=== PATIENT | female | born 1980 | race Caucasian/White ===

== ENCOUNTER 2019-10-02 12:54 | Emergency (ER) | payer OTHER, SELFPAY ==
--- NOTE | ~2019-10-02 | CT_ITS ---
EXAMINATION: CT abdomen pelvis w con DATE: 10/02/2019 14:13 INDICATION: Abdominal pain. TECHNIQUE: Computed tomography (CT) of the abdomen and pelvis was performed with 100 mL Omnipaque 350 intravenous contrast. Automated exposure control and iterative reconstruction technique were employe d. The dose-length product was 219.36 mGy-cm. COMPARISON: CT abdomen and pelvis 01/06/2007 FINDINGS: The visualized portions of the lung bases demonstrate minimal atelectasis. No pleural effus ion. The heart size is normal. No pericardial effusion. There is a 6 mm cyst in the liver. The gallbl adder, spleen, pancreas, adrenal glands, and kidneys are normal. There is a 4.0 cm cyst in the right adnexa. The appendix is not visualized. There are no dilated loops of bowel. There are no pathologica lly enlarged lymph nodes. There is no free intraperitoneal fluid. There is lumbar dextrocurvature. IMPRESSION: 1. 4.0 cm cyst in the right adnexa, likely a follicular cyst. Reviewed, dictated and finalized at location A. NTOLOGY AIDE
[2019-10-02 13:10] VITALS: BP 152/88; PULSE 92; RESP 16; TEMP 36.7; O2SAT 100
--- NOTE | 2019-10-02 13:12 | ED.HA ---
HPI - Headache General Chief Complaint: Headache Stated Complaint: muscle spasms, foggy headed , abd pain Time Seen by Provider: 10/02/19 13:02 Source: patient and RN notes reviewed Mode of arrival: ambulatory Limitations: no limitations History of Present Illness HPI Narrative: Pt is a 39 y/o female with a Hx of Chiari malformation, who presents to the ED with c/o severe migraine headache starting earlier today. She notes that she has had intermittent RUQ pain for the past several weeks. Pt states that she then developed diffuse muscle spasms 3 days ago. She also notes having bladder spasms, stating that she has had several episodes of urinary incontinence over the past few days. Pt notes that she developed an extreme migraine headache earlier today. She rates her pain at 10/10. 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 Pt notes that she took Diazepam 2.5 mg for her symptoms earlier today. She currently denies any nausea, vomiting, diarrhea, cough, or rhinorrhea. MD elicited complaint: migraine Pertinent past history: migraines and other (Chiari malformation) Onset (ago): hour(s) (several) Pain scale (0-10): 10 Quality & Timing: similar to previous headaches Associated symptoms: other (RUQ pain; diffuse muscle spasms; urinary incontinence; bladder spasms) Treatments prior to arrival: other (Diazepam) Related Data Allergies Allergy/AdvReac Type Severity Reaction Status Date / Time No Known Allergies Allergy Mild Verified 10/02/19 13:32 Review of Systems Review of Systems: All systems reviewed & are unremarkable except as noted in HPI and below ENT: Denies nasal discharge Respiratory: Respiratory: Denies cough Gastrointestinal: Gastrointestinal: Reports abdominal pain (RUQ pain), Denies diarrhea, Denies nausea and Denies vomiting Genitourinary: Genitourinary: Reports urinary incontinence and Reports other (bladder spasms) Musculoskeletal: Musculoskeletal: Reports other (diffuse muscle spasms) Neurologic: Reports headache(s) PMFSH Past Medical History Medical History Chiari malformation Migraines Vertigo Surgical History Surgical History No significant past surgical history Family History Family History (Updated 09/15/18 @ 11:17 by DOCTOR UNKNOWN) Mother Patient's mother is in good health Father Patient's father is in good health Social History Social History Smoking status: Never smoker Alcohol intake: current Gender identity (if verbalized by the patient): Female Comments PCP is Dr. Brand. Exam Narrative: Exam Narrative: General appearance: Well-developed, well-nourished Skin: Normal color Head: Normocephalic, nontraumatic Eyes: Clear conjunctiva ENT: Oropharynx normal, ears normal, nose normal Neck: Supple, nontender Chest and respiratory: Airway patent, no respiratory distress, no accessory muscle use Heart: Regular rate/rhythm Abdomen: Soft, moderate tenderness right lower quadrant, positive guarding, no rebound r, no organomegaly, quiet bowel sounds Vascular: Normal peripheral pulses, normal capillary refill. Musculoskeletal: Normal range of motion, nontender back Neurologic: Alert and oriented ?3, UPHOLSTERY SEWER is normal as tested, no gross motor deficit Course Course Emergency Course: Improving Vital Signs Vital signs: Vital Signs Temperature 36.7 C 10/02/19 13:10 Pulse Rate 92 10/02/19 13:10 Respiratory Rate 16 10/02/19 13:10 Blood Pressure 152/88 H 10/02/19 13:10 Pulse Oximetry 100
[2019-10-02 13:27] VITALS: BP 109/88; PULSE 72; RESP 18; O2SAT 100
[2019-10-02] MEDS: ONDANSETRON INJ 4 MG/2 ML VIAL IV PUSH (13:32)
[2019-10-02] MEDS: MORPHINE SULFATE 4 MG/ML INJ IV PUSH (13:33)
[2019-10-02 13:36] LABS: Basophils Absolute Auto 0.1 K/mm3 (0.0-0.1); Basophils Percent Auto 1.2 % (0.2-1.2); Eosinophils Absolute Auto 0.1 K/mm3 (0-0.3); Hematocrit 47.2 % (37.0-47.0); Hemoglobin 14.7 g/dL (12.0-15.0); Immature Granulocyte Absolute 0.03 K/mm3 (0.00-0.031); Immature Granulocyte Percent A 0.5 % (0-0.5); Lymphocytes Absolute Auto 1.27 K/mm3 (0.9-3.2); Lymphocytes Percent Auto 20.9 % (18.3-44.2); Mean Corpuscular HGB Conc 31.1 g/dl (32-36); Mean Corpuscular Hemoglobin 29.4 pg (26-34); Mean Corpuscular Volume 94.4 fl (80-100); Mean Platelet Volume 9.3 fl (7.4-10.4); Monocytes Absolute Auto 0.3 K/mm3 (0.1-0.6); Monocytes Percent Auto 4.6 % (2.6-8.5); Neutrophils Absolute Auto 4.4 K/mm3 (1.3-6.7); Neutrophils Percent Auto 71.8 % (45.5-73.1); Platelet Count Result 186 k/mm3 (150-375); Red Cell Distribution Width 12.9 % (11.5-14.5); White Blood Count 6.1 K/mm3 (4.5-10.0)
[2019-10-02 13:41] LABS: Add Urine Microscopic? YES; Appearance Urine Cloudy (Clear); Bacteria Urine 4+ /hpf; Bilirubin Urine Negative (Negative); Blood Urine Negative (Negative); Color Urine Yellow (Yellow); Glucose Urine UA Negative (Negative); Ketones Urine Negative (Negative); Leukocyte Esterase Ur 1+ LEU/UL (Negative); Mucus Urine Few /lpf; Nitrate Urine Negative (Negative); Protein Urine Negative (Negative); Specific Grav Ur 1.021 (1.001-1.035); Squamous Epithelial Cell Urine Many /hpf (Few); Urobilinogen Urine Negative mg/dL (<2.0)
[2019-10-02 13:52] LABS: Alanine Aminotransferase 13 U/L (4-35); Albumin Level 4.8 g/dL (3.5-5.1); Alkaline Phosphatase 48 U/L (38-126); Aspartate Amino Transferase 24 U/L (14-36); Bilirubin,Total 0.6 mg/dL (0.2-1.3); Blood Urea Nitrogen 11 mg/dL (7-17); Carbon Dioxide 21 mmol/L (22-30); Chloride 100 mmol/L (98-107); Estimated CRCL calculation 80 ml/min; Estimated Glomerular Filt Rate > 60; Glucose 113 mg/dL (65-105); Lipase 66 U/L (23-300); Potassium 3.6 mmol/L (3.4-5.0); Sodium 139 mmol/L (137-145)
[2019-10-02 14:34] VITALS: BP 101/71; PULSE 63; RESP 16; O2SAT 100
[2019-10-02 15:43] VITALS: BP 107/91; PULSE 78; RESP 16; O2SAT 99
== END 2019-10-02 15:43 | disposition home or self-care (01) ==
PROVIDERS: Emergency Provider Emergency Medicine; PCP Internal Medicine
DX: R51 Headache (principal); N83.201 Unspecified ovarian cyst, right side
CPT/HCPCS: 36415; 74177; 80053; 81001; 81025; 83690; 85025; 87086; 87088; 96374; 96375; 99284; J2270; J2405; Q9967

== ENCOUNTER 2020-03-07 11:07 | Outpatient (CLI) | payer OTHER, SELFPAY ==
[2020-03-07 11:55] LABS: Basophils Absolute Auto 0.1 K/mm3 (0.0-0.1); Basophils Percent Auto 0.9 % (0.2-1.2); Eosinophils Absolute Auto 0.1 K/mm3 (0-0.3); Eosinophils Percent Auto 0.9 % (0-4.4); Hematocrit 42.6 % (37.0-47.0); Hemoglobin 14.3 g/dL (12.0-15.0); Immature Granulocyte Absolute 0.01 K/mm3 (0.00-0.031); Immature Granulocyte Percent A 0.2 % (0-0.5); Lymphocytes Absolute Auto 1.69 K/mm3 (0.9-3.2); Lymphocytes Percent Auto 31.8 % (18.3-44.2); Mean Corpuscular HGB Conc 33.6 g/dl (32-36); Mean Corpuscular Hemoglobin 29.9 pg (26-34); Mean Corpuscular Volume 89.1 fl (80-100); Monocytes Absolute Auto 0.3 K/mm3 (0.1-0.6); Monocytes Percent Auto 6.2 % (2.6-8.5); Neutrophils Absolute Auto 3.2 K/mm3 (1.3-6.7); Platelet Count Result 238 k/mm3 (150-375); Red Blood Count 4.78 M/mm3 (4.2-5.4); Red Cell Distribution Width 12.3 % (11.5-14.5); White Blood Count 5.3 K/mm3 (4.5-10.0)
[2020-03-07 12:08] LABS: Alanine Aminotransferase 9 U/L (4-35); Albumin Level 4.9 g/dL (3.5-5.1); Alkaline Phosphatase 50 U/L (38-126); Aspartate Amino Transferase 17 U/L (14-36); Bilirubin,Total 0.5 mg/dL (0.2-1.3); Blood Urea Nitrogen 11 mg/dL (7-17); Calcium 9.2 mg/dL (8.4-10.2); Carbon Dioxide 25 mmol/L (22-30); Chloride 104 mmol/L (98-107); Cholesterol 188 mg/dL (0-200); Estimated Glomerular Filt Rate > 60; Glucose 91 mg/dL (65-105); HDL Direct 65 mg/dL; Potassium 3.8 mmol/L (3.4-5.0); Sodium 138 mmol/L (137-145); Triglycerides 73 mg/dL (<150)
[2020-03-07 12:18] LABS: LDL Cholesterol Direct 92 mg/dL
[2020-03-07 12:47] LABS: HIV 1/2 Ab P24 Ag Result Negative (Negative)
[2020-03-07 12:48] LABS: Vitamin D 25 Hydroxy 51.1 ng/mL
[2020-03-07 13:20] LABS: Hepatitis C Virus Antibody Negative (Negative)
[2020-03-10 05:12] LABS: Amphetamines negative; Barbiturates negative; Benzodiazepines POSITIVE; Cocaine Metabolites negative; Marijuana Metabolites negative; PCP negative
== END 2020-03-07 11:08 | disposition home or self-care (01) ==
PROVIDERS: PCP Internal Medicine; Visit Provider Clinical Nurse Specialist
DX: Z13.228 Encounter for screening for other metabolic disorders (principal); Z20.6 Contact with and (suspected) exposure to human immunodeficiency virus [HIV]; Z13.220 Encounter for screening for lipoid disorders; Z20.5 Contact with and (suspected) exposure to viral hepatitis; E55.9 Vitamin D deficiency, unspecified; R53.83 Other fatigue
CPT/HCPCS: 36415; 80053; 80061; 80307; 82306; 84443; 85025; 86703; 86803; G0432

== ENCOUNTER 2020-08-21 11:14 | Outpatient (CLI) | payer OTHER, SELFPAY ==
--- NOTE | ~2020-08-21 | XR_ITS ---
XR chest 2V DATE: 08/21/2020 11:40 INDICATION: Shortness of breath, cough. Covid-positive 2 weeks ago. TECHNIQUE: PA and lateral views COMPARISON: None FINDINGS: Normal heart size. No hilar or mediastinal enlargement. Bilateral hyperinflation. No pulmonary infiltrate or consolidation, pleural effusion or pulmonary vas cular congestion or pneumothorax. IMPRESSION: Bilateral hyperinflation; no active cardiopulmonary disease Reviewed, dictated and finalized at location A. CAL REIMBURSEMENT MANAGER
== END 2020-08-21 11:15 | disposition home or self-care (01) ==
PROVIDERS: PCP Internal Medicine; Visit Provider Nurse Practitioner
DX: R06.02 Shortness of breath (principal)
CPT/HCPCS: 71046

== ENCOUNTER 2020-08-22 13:06 | Emergency (ER) | payer OTHER, SELFPAY ==
[2020-08-22] VITALS (8 sets, daily range): BP systolic 104–128; BP diastolic 64–97; PULSE 92; RESP 17; TEMP 36.2; O2SAT 100
[2020-08-22 14:18] LABS: Basophils Absolute Auto 0.1 K/mm3 (0.0-0.1); Eosinophils Absolute Auto 0.1 K/mm3 (0-0.3); Hematocrit 44.3 % (37.0-47.0); Hemoglobin 15.1 g/dL (12.0-15.0); Immature Granulocyte Absolute 0.03 K/mm3 (0.00-0.031); Immature Granulocyte Percent A 0.4 % (0-0.5); Lymphocytes Absolute Auto 1.42 K/mm3 (0.9-3.2); Lymphocytes Percent Auto 21.2 % (18.3-44.2); Mean Corpuscular HGB Conc 34.1 g/dl (32-36); Mean Corpuscular Hemoglobin 30.1 pg (26-34); Mean Corpuscular Volume 88.4 fl (80-100); Mean Platelet Volume 9.5 fl (7.4-10.4); Monocytes Absolute Auto 0.3 K/mm3 (0.1-0.6); Monocytes Percent Auto 4.8 % (2.6-8.5); Neutrophils Absolute Auto 4.8 K/mm3 (1.3-6.7); Neutrophils Percent Auto 71.6 % (45.5-73.1); Platelet Count Result 275 k/mm3 (150-375); Red Blood Count 5.01 M/mm3 (4.2-5.4); Red Cell Distribution Width 12.6 % (11.5-14.5); White Blood Count 6.7 K/mm3 (4.5-10.0)
[2020-08-22 14:19] LABS: Add Urine Microscopic? YES; Appearance Urine Clear (Clear); Bacteria Urine Trace /hpf; Bilirubin Urine Negative (Negative); Blood Urine Negative (Negative); Color Urine Yellow (Yellow); Glucose Urine UA Negative (Negative); Ketones Urine Trace mg/dL (Negative); Leukocyte Esterase Ur Negative LEU/UL (Negative); Mucus Urine Rare /lpf; Nitrate Urine Negative (Negative); Protein Urine Negative (Negative); RBC Urine 0-2 /hpf (0-2); Specific Grav Ur 1.026 (1.001-1.035); Squamous Epithelial Cell Urine Many /hpf (Few); WBC Urine 0-3 /hpf
[2020-08-22 14:23] LABS: D Dimer 0.27 ug/mL (<0.48)
[2020-08-22 14:26] LABS: Alanine Aminotransferase 11 U/L (4-35); Albumin Level 4.9 g/dL (3.5-5.1); Alkaline Phosphatase 69 U/L (38-126); Anion Gap 8 mmol/L (8-16); Aspartate Amino Transferase 23 U/L (14-36); Bilirubin,Total 0.7 mg/dL (0.2-1.3); Blood Urea Nitrogen 13 mg/dL (7-17); CRP < 0.5 mg/dL (<1.0); Calcium 9.6 mg/dL (8.4-10.2); Carbon Dioxide 26 mmol/L (22-30); Chloride 104 mmol/L (98-107); Estimated CRCL calculation 73 ml/min; Estimated Glomerular Filt Rate > 60; Glucose 87 mg/dL (65-105); Potassium 4.3 mmol/L (3.4-5.0); Sodium 138 mmol/L (137-145)
[2020-08-22] MEDS: SODIUM CHLORIDE 0.9% IV 1,000 ML 999 ML IV CONT (14:36)
--- NOTE | 2020-08-22 15:29 | ED.GENADULT ---
HPI - General Adult General Chief complaint: Shortness of Breath/Dyspnea Stated complaint: sob Time Seen by Provider: 08/22/20 13:20 Source: patient Mode of arrival: ambulatory Limitations: no limitations History of Present Illness HPI narrative: Patient is a 40-year-old female who presents to emergency department for evaluation of loose stools that are described as yellow with some chest heaviness and pressure continued to have cough patient diagnosed early in the month with COVID-19 patient denies vomiting rectal bleeding melena patient on arrival does not appear uncomfortable or distressed patient had unremarkable EKG and chest x-ray performed this week after seeing her earlier this week Related Data Home Medications Medication Instructions Recorded Confirmed ondansetron HCl 8 mg tablet 8 mg PO Q8H PRN 12/07/19 prenat.vits,jacob,djj-[id number]-[id number] 1 tablet PO DAILY 12/07/19 drospirenone (contraceptive) 4 mg 4 mg PO DAILY 03/07/20 (28) tablet Allergies Allergy/AdvReac Type Severity Reaction Status Date / Time No Known Allergies Allergy Mild Verified 08/22/20 13:38 Review of Systems Review of Systems: All systems reviewed & are unremarkable except as noted in HPI and below PMFSH Past Medical History Medical History Chiari malformation Dermoid tumor Migraines Vertigo Surgical History Surgical History No significant past surgical history Family History Family History (Updated 09/15/18 @ 11:17 by DOCTOR UNKNOWN) Mother Patient's mother is in good health Father Patient's father is in good health Social History Social History Smoking status: Never smoker Alcohol intake: current Gender identity (if verbalized by the patient): Female Exam Narrative: Exam Narrative: GENERAL: Well-appearing, well-nourished, and in no acute distress. HEAD: Normocephalic, atraumatic. EYES: PERRLA and EOMI. ENT: Nares clear, no rhinorrhea or epistaxis. Mucous membranes moist. CHEST: Clear to auscultation. No respiratory distress. No wheezes rales or rhonchi HEART: Regular rate and rhythm. No murmur heard. EXTREMITIES: Normal range of motion. No edema. SKIN: Warm, dry, no rash. NEURO: No focal deficits. Alert and oriented x3. PSYCH: Normal mood and affect. Course Course Emergency Course: Patient in the room evaluated no high risk changes in the blood work or imaging EKG chest x-ray were reviewed and no high risk changes patient was hydrated in the emergency department felt to be safe for discharge home no pneumonia no hypoxemia normal vital signs ABCs intact Vital Signs Vital signs: Vital Signs Temperature 97.1 F L 08/22/20 13:14 Pulse Rate 92 08/22/20 13:14 Respiratory Rate 17 08/22/20 13:14 Blood Pressure 122/82 08/22/20 13:14 Pulse Oximetry 100 08/22/20 13:14 Temperature 97.1 F L 08/22/20 13:14 Pulse Rate 92 08/22/20 13:14 Respiratory Rate 17 08/22/20 13:14 Blood Pressure 108/97 H 08/22/20 14:32 Pulse Oximetry 100 08/22/20 14:32 Medical Decision Making [facility] Narrative Medical decision making narrative: Patient in the room in no distress aware of case findings treatment plan diagnosis. Patient will follow with primary care felt appropriate for outpatient reevaluation will be treated symptomatically given reasons to return Vital Signs Vital Signs: Vital Signs Temperature 97.1 F L 08/22/20 13:14 Pulse Rate 92 08/22/20 13:14 Respiratory Rate 17 08/22/20 13:14 Blood Pressure 122/82 08/22/20 13:14 Pulse Oximetry 100 08/22/20 13:14 Temperature 97.1 F L 08/22/20 13:14 Pulse Rate 92 08/22/20 13:14 Respiratory Rate 17 08/22/20 13:14 Blood Pressure 108/97 H 08/22/20 14:32 Pulse Oximetry 100 08/22/20 14:32 Lab Data Result diagrams: 08/22/20 13:57 07/25
== END 2020-08-22 16:14 | disposition home or self-care (01) ==
PROVIDERS: Emergency Medicine Emergency Medical Services; Emergency Provider Emergency Medicine; PCP Internal Medicine
DX: U07.1 COVID-19 (principal); R10.9 Unspecified abdominal pain
CPT/HCPCS: 36415; 80053; 81001; 85025; 85380; 86140; 96360; 99283; J7030

== ENCOUNTER 2020-08-29 14:48 | Outpatient (CLI) | payer OTHER, SELFPAY ==
--- NOTE | 2020-08-29 17:14 | WPDPFTINT ---
PFT Interpretation This is a pulmonary function test with spirometry, plethysmography and diffusing capacity. The test was performed and results interpreted in accordance with the 2019 and 2005 ATS/ERS Task Force guidelines respectively using the Sarthak/Meagan reference equations. Findings: Spirometry: The contour of the expiratory flow tracing is flattened in 3 of 4 efforts. The FVC is 3.09, 79% predicted. The FEV1 is 2.58 L, 85% predicted. The FEV1:FVC ratio is 84%. Plethysmography: The total lung capacity is 4.50 L, 79% predicted. The functional residual capacity is 2.85 L, 81% predicted. The residual volume is 1.41 L, 74% predicted. Diffusing capacity: The absolute diffusing capacity is 18.3, 95% predicted. The diffusing capacity corrected for alveolar volume is 4.79, 110% predicted. Impression: The spirometry is normal without evidence of an obstructive abnormality. There is flattening of the expiratory flow tracing in 3 of 4 efforts suggesting of a variable intrathoracic obstruction. This can be seen with intrathoracic tracheomalacia, bronchogenic cysts, malignant tracheal lesions and vocal cord abnormalities. Clinical correlation is recommended. The lung volumes are normal. The diffusing capacity is normal. There are no prior studies for comparison
== END 2020-08-29 14:49 | disposition home or self-care (01) ==
LOC: ANHPFT 14:49
PROVIDERS: PCP Internal Medicine; Visit Provider Nurse Practitioner
DX: R06.02 Shortness of breath (principal)
CPT/HCPCS: 94375; 94726; 94729

== ENCOUNTER 2020-09-03 14:22 | Outpatient (CLI) | payer OTHER, SELFPAY ==
--- NOTE | ~2020-09-03 | CT_ITS ---
EXAMINATION:CT chest w con DATE: 09/03/2020 14:51 INDICATION: Shortness of breath. TECHNIQUE: Computed tomography (CT) of the chest was performed with 75 mL Omnipaque 350 intravenous c ontrast. Automated exposure control and iterative reconstruction technique were employed. The dose-le ngth product (DLP) was 139.07 mGy-cm. COMPARISON: CT abdomen and pelvis 10/02/2019 FINDINGS: There is mild scarring at the lung apices. There are 4 mm and 2 mm nodules in left lower lo be, likely benign. No pleural effusion. The heart size is normal. No pericardial effusion. The bones are unremarkable. IMPRESSION: 1. Mild scarring at the lung apices. 2. Small lung nodules, likely benign. Reviewed, dictated and finalized at location A. IAL POLICE
--- NOTE | ~2020-09-03 | XR_ITS ---
EXAMINATION: XR chest 2V EXAM DATE: 09/03/2020 14:39 INDICATION: R09.89 - Other specified symptoms and signs involving the ci TECHNIQUE: Frontal and lateral projections of the chest obtained and reviewed. There is no prior ramiro dy for comparison. FINDINGS: The lungs are clear. There are no pleural effusions. The cardiomediastinal silhouette is within normal limits. There is no pneumothorax suspected. The bones and soft tissues are unremarkab le. IMPRESSION: No acute cardiopulmonary findings. Reviewed, dictated and finalized at location B. LE CUTTING SAW OPERATOR
== END 2020-09-03 14:23 | disposition home or self-care (01) ==
PROVIDERS: PCP Internal Medicine; Visit Provider Nurse Practitioner
DX: R06.02 Shortness of breath (principal); R91.8 Other nonspecific abnormal finding of lung field
CPT/HCPCS: 71046; 71260; Q9967

== ENCOUNTER 2020-09-05 10:12 | Outpatient (CLI) | payer OTHER, SELFPAY ==
--- NOTE | 2020-09-05 10:39 | ECHO_ITS ---
Patient Info Name: Savannah Darnell Age: 40 years : 1980 Gender: Female Ht: 67 in Wt: 102 lbs BSA: 1.46 m2 HR: 60 bpm BP: 105 / 81 mmHg Technical Quality: Good Exam Date: 09/05/2020 10:43 AM Exam Location: [facility] Patient Status: Outpatient Admit Date: 09/05/2020 Staff Ordering Physician: Marlena Lawson NP Radiology Scheduler: Owen Garzon, COBY, RT Attending Provider: Marlena Lawson NP Referring Physician: Lulu NEW; Exam Type: CA echo doppler color flow Study Info Indications R06.02 - Shortness of breath Complete two-dimensional, color flow and Doppler transthoracic echocardiogram is performed. Strain analysis performed. Summary 1. Complete two-dimensional, color flow and Doppler transthoracic echocardiogram is performed. 2. Left ventricular chamber dimension is normal. 3. Left ventricular systolic function is normal, estimated at 60-65%. 4. The left ventricular diastolic function is normal. 5. Global longitudinal strain is normal at -17.2%. 6. There is trace mitral valve regurgitation. 7. There is trace tricuspid valve regurgitation. 8. No pulmonary hypertension, estimated pulmonary arterial systolic pressure is 18 mmHg. 9. There is trivial pericardial effusion. Left Ventricle Global longitudinal strain is normal at -17.2%. Left ventricular chamber dimension is normal. Left ventricular systolic function is normal, estimated at 60-65%. The left ventricular diastolic function is normal. Right Ventricle Right ventricular chamber dimension is normal. Right ventricular systolic function is normal. Left Atria Left atrial chamber dimension is normal. Right Atria Right atrial chamber dimension is normal. Aortic Valve The aortic valve is trileaflet. There is no aortic valve stenosis. There is no aortic valve regurgitation. Pulmonic Valve There is no pulmonic regurgitation. Mitral Valve There is no mitral valve stenosis. There is trace mitral valve regurgitation. Tricuspid Valve There is trace tricuspid valve regurgitation. No pulmonary hypertension, estimated pulmonary arterial systolic pressure is 18 mmHg. Pericardium/Pleural There is trivial pericardial effusion. Inferior Vena Cava Normal inferior vena cava with >50% collapse upon inspiration consistent with normal right atrial pressure, 5 mmHg. Aorta The aortic root size at the sinus of Valsalva is normal. Left Ventricular Outflow Tract Name Value Normal LVOT 2D LVOT Diameter 1.9 cm LVOT Doppler LVOT Peak Gradient 2 mmHg LVOT Mean Gradient 1 mmHg LVOT VTI 13 cm LVOT VTI/AV VTI Ratio 0.7 LVOT Stroke Volume 39 ml LVOT CO 2.5 l/min LVOT CI 1.7 l/min/m2 Mitral Valve Name Value Normal MV Dopple
== END 2020-09-05 10:13 | disposition home or self-care (01) ==
PROVIDERS: PCP Internal Medicine; Visit Provider Nurse Practitioner
DX: R06.02 Shortness of breath (principal)
CPT/HCPCS: 93306

== ENCOUNTER 2020-10-16 02:05 | Emergency (ER) | payer OTHER, SELFPAY ==
--- NOTE | ~2020-10-16 | CT_ITS ---
EXAMINATION: CT soft tissue neck w con EXAM DATE: 10/16/2020 04:49 INDICATION: Mandibular mass on right side of jaw, painful swallowing. Tooth pulled on Wednesday. TECHNIQUE: Spiral CT of the neck was performed following intravenous injection of 75 mL Omnipaque 350 . Axial, coronal and sagittal images were reviewed. The dose-length product (DLP) for this examinat ion was 241.56 mGy-cm. The exposure was tailored according to patient size (auto mA exposure control ), and iterative reconstruction (ASIR) was used as additional dose reduction technique. There is no prior study for comparison. FINDINGS: There is asymmetry in the masseter muscles, with the right side likely edematous. Small yan unt of fluid suspected along the inner surface of masseter adjacent to the presumed right lower wisdo m tooth extraction site, without well-defined rim-enhancing wall. The thyroid gland is unremarkable. The submandibular and parotid glands are symmetric. There is no cervical lymphadenopathy. There are no masses identified. The superior mediastinum is unremarkable. The airway is unremarkable. Parapharyngeal and pre-glottic fat planes are preserved. The opacified vasculature is patent. The orbits are unremarkable. Visualized sinuses and mastoid air cells are well aerated. Lung apic es are clear. There is cervical spondylosis. IMPRESSION: 1. Right masseter edema, myositis. 2. Small amount of fluid contiguous to right lower wisdom tooth extraction site, site without organiz ed abscess at this time. 3. Consider antibiotic administration and if symptoms persist or progress a follow-up CT. Reviewed, dictated and finalized at location B. TATISTICS MANAGER IMPRESSION: 1. Right masseter edema, myositis. 2. Small amount of fluid contiguous to right lower wisdom tooth extraction site , site without organized abscess at this time. 3. Consider antibiotic administration and if symptoms persist or progress a fol low-up CT.
[2020-10-16 02:14] VITALS: BP 120/83; PULSE 100; RESP 20; TEMP 36.6; O2SAT 100
--- NOTE | 2020-10-16 02:54 | ED.DENTAL ---
HPI - Dental/Oral General Chief complaint: Dental/Oral Stated complaint: tooth abcess Time Seen by Provider: 10/16/20 02:23 Source: patient Mode of arrival: ambulatory Limitations: no limitations History of Present Illness HPI Narrative: A 40-year-old female comes into the emergency department with complaints of right jaw pain and swelling. Patient notes that she was recently diagnosed with cellulitis of the face secondary to a dental infection. Patient states that she was originally started on amoxicillin and then subsequently had Flagyl added on. Patient notes that her mouth has been stuck shut and she has been unable to get it to open up. Patient has been wedging popsicle sticks in between her teeth to try and open up her mouth. Related Data Home Medications Medication Instructions Recorded Confirmed ondansetron HCl 8 mg tablet 8 mg PO Q8H PRN 12/07/19 prenat.vits,jacob,[id number] 1 tablet PO DAILY 12/07/19 drospirenone (contraceptive) 4 mg 4 mg PO DAILY 03/07/20 (28) tablet acetaminophen-codeine tablet 10/16/20 amoxicillin 10/16/20 metronidazole 10/16/20 Allergies Allergy/AdvReac Type Severity Reaction Status Date / Time No Known Allergies Allergy Mild Verified 10/16/20 02:17 Review of Systems Review of Systems: Narrative: CONSTITUTIONAL: Denies fever, chills, or sweats. EYES: Denies visual changes, redness, or discharge. ENT: Denies rhinorrhea, congestion, sore throat, or otalgia. CARDIOVASCULAR: Denies chest pain, palpitations, or edema. RESPIRATORY: Denies cough or dyspnea. GASTROINTESTINAL: Denies abdominal pain, nausea, vomiting, or diarrhea. GENITOURINARY: Denies dysuria or hematuria. SKIN: Denies rash or itching. MUSCULOSKELETAL: Denies back pain, joint pain, or myalgia. NEUROLOGIC: Denies headache, numbness, dizziness, or weakness. PSYCHIATRIC: Denies anxiety or depression. [facility] Past Medical History Medical History Airway obstruction Chiari malformation Dermoid tumor Migraines Vertigo Surgical History Surgical History No significant past surgical history Family History Family History Mother Patient's mother is in good health Father Patient's father is in good health Social History Social History Smoking status: Never smoker Alcohol intake: current Gender identity (if verbalized by the patient): Female Sexual Orientation (if Verbalized by the Patient): Straight or Heterosexual Exam Narrative: Exam Narrative: GENERAL: Well-appearing, well-nourished, and in no acute distress. HEAD: Normocephalic, atraumatic. Indurated mass noted at the ramus of the right mandible EYES: PERRLA and EOMI. ENT: Nares clear, no rhinorrhea or epistaxis. Mucous membranes moist. Oropharynx without tonsillar hypertrophy exudate or other lesions. Bilateral TMs pearly laureano nonbulging NECK: Supple. No adenopathy or masses. No carotid bruits or JVD CHEST: Clear to auscultation. No respiratory distress. No wheezes rales or rhonchi HEART: Regular rate and rhythm. No murmur heard. Normal peripheral pulses. ABDOMEN: Soft, nontender, nondistended, normal active bowel sounds. EXTREMITIES: Normal range of motion. No edema. SKIN: Warm, dry, no rash. NEURO: No focal deficits. Alert and oriented x3. PSYCH: Normal mood and affect. Course Reevaluation(s) Reevaluation #1: Patient resting comfortably at this time. Informed her of her CT findings. Patient's labs are reassuring. Feel that the patient's masseter muscle may be in spasm secondary to irritation from the local infection. Recommended the patient that she continue with warm compresses, will add on muscle relaxer. Have recommended also that the patient follow-up with her dentist who did the extraction. Time: 05:15 Vital Signs Vital si
[2020-10-16 03:54] LABS: Basophils Percent Auto 0.6 % (0.2-1.2); Eosinophils Absolute Auto 0.1 K/mm3 (0-0.3); Eosinophils Percent Auto 1.2 % (0-4.4); Hemoglobin 12.5 g/dL (12.0-15.0); Immature Granulocyte Absolute 0.02 K/mm3 (0.00-0.031); Immature Granulocyte Percent A 0.3 % (0-0.5); Lymphocytes Absolute Auto 1.13 K/mm3 (0.9-3.2); Mean Corpuscular HGB Conc 34.7 g/dl (32-36); Mean Corpuscular Volume 86.5 fl (80-100); Mean Platelet Volume 9.5 fl (7.4-10.4); Monocytes Absolute Auto 0.6 K/mm3 (0.1-0.6); Monocytes Percent Auto 9.3 % (2.6-8.5); Neutrophils Absolute Auto 4.8 K/mm3 (1.3-6.7); Neutrophils Percent Auto 71.6 % (45.5-73.1); Platelet Count Result 266 k/mm3 (150-375); Red Blood Count 4.16 M/mm3 (4.2-5.4); Red Cell Distribution Width 12.3 % (11.5-14.5); White Blood Count 6.6 K/mm3 (4.5-10.0)
[2020-10-16 04:05] LABS: Anion Gap 7 mmol/L (8-16); Blood Urea Nitrogen 8 mg/dL (7-17); Carbon Dioxide 29 mmol/L (22-30); Chloride 102 mmol/L (98-107); Estimated CRCL calculation 77 ml/min; Estimated Glomerular Filt Rate > 60; Glucose 94 mg/dL (65-105); Potassium 3.8 mmol/L (3.4-5.0); Sodium 138 mmol/L (137-145)
[2020-10-16 05:30] VITALS: BP 115/76; PULSE 84; RESP 18; O2SAT 98
== END 2020-10-16 05:30 | disposition home or self-care (01) ==
PROVIDERS: Emergency Provider Emergency Medicine; PCP Internal Medicine
DX: R25.2 Cramp and spasm (principal); K08.89 Other specified disorders of teeth and supporting structures; K04.7 Periapical abscess without sinus
CPT/HCPCS: 36415; 70491; 80048; 81025; 85025; 99284; Q9967

== ENCOUNTER → 2021-03-10 08:12 | Outpatient (CLI) | payer OTHER, SELFPAY ==
[2021-03-10 20:29] LABS: SARS-CoV-2 RNA PCR Negative
== END ==
PROVIDERS: PCP Internal Medicine; Visit Provider Nurse Practitioner
DX: R68.89 Other general symptoms and signs (principal); Z20.822 Contact with and (suspected) exposure to COVID-19
CPT/HCPCS: C9803; U0003; U0005

== ENCOUNTER 2021-05-02 12:33 | Outpatient (CLI) | payer OTHER, SELFPAY ==
--- NOTE | ~2021-05-02 | XR_ITS ---
EXAMINATION: XR chest 2V DATE: 05/02/2021 12:51 INDICATION: Cough TECHNIQUE: PA and lateral views of the chest are obtained. COMPARISON: 09/03/2020 FINDINGS: The lungs are free of acute opacities. There is no pleural effusion or pneumothorax. The ca rdiomediastinal silhouette is normal. The visualized bones and soft tissues are unremarkable. IMPRESSION: 1. No acute cardiopulmonary abnormality. Reviewed, dictated and finalized at location B.
[2021-05-02 13:16] LABS: Basophils Absolute Auto 0.1 K/mm3 (0.0-0.1); Basophils Percent Auto 0.8 % (0.2-1.2); Eosinophils Percent Auto 0.6 % (0-4.4); Hematocrit 41.6 % (37.0-47.0); Hemoglobin 13.9 g/dL (12.0-15.0); Immature Granulocyte Absolute 0.02 K/mm3 (0.00-0.031); Immature Granulocyte Percent A 0.3 % (0-0.5); Lymphocytes Absolute Auto 1.54 K/mm3 (0.9-3.2); Lymphocytes Percent Auto 21.6 % (18.3-44.2); Mean Corpuscular HGB Conc 33.4 g/dl (32-36); Mean Corpuscular Hemoglobin 29.8 pg (26-34); Mean Corpuscular Volume 89.3 fl (80-100); Mean Platelet Volume 9.4 fl (7.4-10.4); Monocytes Absolute Auto 0.3 K/mm3 (0.1-0.6); Monocytes Percent Auto 4.6 % (2.6-8.5); Neutrophils Absolute Auto 5.1 K/mm3 (1.3-6.7); Neutrophils Percent Auto 72.1 % (45.5-73.1); Platelet Count Result 217 k/mm3 (150-375); Red Blood Count 4.66 M/mm3 (4.2-5.4); Red Cell Distribution Width 12.6 % (11.5-14.5); White Blood Count 7.1 K/mm3 (4.5-10.0)
[2021-05-02 13:29] LABS: Alanine Aminotransferase 10 U/L (4-35); Albumin Level 4.6 g/dL (3.5-5.1); Alkaline Phosphatase 59 U/L (38-126); Anion Gap 8 mmol/L (8-16); Aspartate Amino Transferase 19 U/L (14-36); Bilirubin,Total 0.7 mg/dL (0.2-1.3); Blood Urea Nitrogen 12 mg/dL (7-17); Calcium 9.3 mg/dL (8.4-10.2); Carbon Dioxide 23 mmol/L (22-30); Chloride 104 mmol/L (98-107); Estimated Glomerular Filt Rate > 60; Glucose 87 mg/dL (65-110); Potassium 4.1 mmol/L (3.4-5.0); Sodium 135 mmol/L (137-145)
== END 2021-05-02 12:34 | disposition home or self-care (01) ==
LOC: ANHIMG 12:38
PROVIDERS: Clinical Nurse Specialist; PCP Internal Medicine; Visit Provider Internal Medicine
DX: R05 Cough (principal); R63.0 Anorexia
CPT/HCPCS: 36415; 71046; 80053; 84443; 85025

== ENCOUNTER 2021-08-07 11:44 | Emergency (ER) | payer OTHER, SELFPAY ==
--- NOTE | ~2021-08-07 | XR_ITS ---
EXAMINATION: XR chest 1V portable DATE: 08/07/2021 14:22 INDICATION: Cough and shortness of breath. TECHNIQUE: A single frontal view of the chest was obtained. COMPARISON: Chest 2 views 05/02/2021 FINDINGS: There is mild scarring at the lung apices. No pleural effusion or pneumothorax. The heart s ize is normal. IMPRESSION: 1. Stable mild scarring at the lung apices. Reviewed, dictated and finalized at location A. NESS SERVICES TECH
[2021-08-07 11:59] VITALS: BP 116/85; PULSE 72; RESP 16; TEMP 36.7; O2SAT 100
--- NOTE | 2021-08-07 14:29 | ED.GENADULT ---
HPI - General Adult General Chief complaint: Upper Respiratory Infection Stated complaint: cold/flu symptoms x5 days Time Seen by Provider: 08/07/21 13:11 Source: patient Mode of arrival: ambulatory Limitations: no limitations History of Present Illness HPI narrative: Patient presents with chief complaint of headache, cough, body aches, runny nose and congestion over the past 5 days. Patient reports that she has received pfizer vaccinations. She reports her first was in March. She was infected with Covid. She received her second Covid vaccination after. She has not received her booster. patient reports that she took that at home COVID test which was negative. Patient reports dx of Chiari malformation without surgical fix-she is managed by her neurologist. She denies any neurological changes or deficits accompanying her symptoms. Related Data Home Medications Medication Instructions Recorded Confirmed prenat.vits,jacob,enz-haar-mrswi 1 tablet PO DAILY 12/07/19 05/15/21 drospirenone (contraceptive) 4 mg 4 mg PO DAILY 03/07/20 05/15/21 (28) tablet drospirenone (contraceptive) 08/07/21 [Slynd] Allergies Allergy/AdvReac Type Severity Reaction Status Date / Time No Known Allergies Allergy Mild Verified 08/07/21 14:04 Review of Systems Review of Systems: CONSTITUTIONAL: Denies fever, chills, or sweats. EYES: Denies visual changes, redness, or discharge. ENT: Reports rhinorrhea, congestion, Denies otalgia. CARDIOVASCULAR: Denies chest pain, palpitations, or edema. RESPIRATORY: Reports dry cough Denies dyspnea. GASTROINTESTINAL: Denies abdominal pain, nausea, vomiting, or diarrhea. GENITOURINARY: Denies dysuria or hematuria. SKIN: Denies rash or itching. MUSCULOSKELETAL: Denies back pain, joint pain, or myalgia. NEUROLOGIC: Reports headache, Denies numbness, dizziness, or weakness. PSYCHIATRIC: Denies anxiety or depression. [facility] Past Medical History Medical History (Updated 08/07/21 @ 15:08 by Candace Martinez PA-C) Airway obstruction Chiari I malformation Chiari malformation Dermoid tumor Migraines Vertigo Surgical History Surgical History No significant past surgical history Family History Family History Mother Patient's mother is in good health Father Patient's father is in good health Social History Social History Smoking status: Never smoker Alcohol intake: current Gender identity (if verbalized by the patient): Female Sexual Orientation (if Verbalized by the Patient): Straight or Heterosexual Exam Narrative: GENERAL: Well-appearing, well-nourished.nontoxic in appearance. HEAD: Normocephalic, atraumatic. EYES: PERRLA and EOMI. ENT: Nares clear, no rhinorrhea or epistaxis. Bilateral TMs pearly laureano nonbulging NECK: Supple. No adenopathy or masses. No vertebral tenderness or loss of ROM. CHEST: Clear to auscultation. No respiratory distress. No wheezes rales or rhonchi HEART: Regular rate and rhythm. Normal peripheral pulses. ABDOMEN: Soft, nontender, nondistended, normal active bowel sounds. No bruises noted. EXTREMITIES: No acute changes in ROM. No edema. SKIN: Warm, dry, no rash. NEURO: No focal deficits. Alert and oriented x3. PSYCH: Normal mood and affect. Course Vital Signs Vital signs: Vital Signs Temperature 98.0 F 08/07/21 11:59 Pulse Rate 72 08/07/21 11:59 Respiratory Rate 16 08/07/21 11:59 Blood Pressure 116/85 08/07/21 11:59 Pulse Oximetry 100 08/07/21 11:59 Temperature 98.6 F 08/07/21 15:55 Pulse Rate 65 08/07/21 15:55 Respiratory Rate 18 08/07/21 15:55 Blood Pressure 118/77 08/07/21 15:55 Pulse Oximetry 100 08/07/21 15:55 Medical Decision Making MDM Narrative Medical decision making narrative: Influenza test is negative. Patient nontoxic in appea
[2021-08-07] MEDS: KETOROLAC 30 MG/ML VIAL (*BKC) IM (14:50)
[2021-08-07 15:55] VITALS: BP 118/77; PULSE 65; RESP 18; TEMP 37; O2SAT 100
[2021-08-11 21:04] LABS: SARS-CoV-2 RNA PCR Negative
== END 2021-08-07 15:57 | disposition home or self-care (01) ==
PROVIDERS: Physician Assistant; Emergency Provider Emergency Medicine; PCP Internal Medicine
DX: B34.9 Viral infection, unspecified (principal); Z20.822 Contact with and (suspected) exposure to COVID-19
CPT/HCPCS: 71045; 87804; 96372; 99283; C9803; J1885; U0003; U0005

== ENCOUNTER 2021-10-03 13:41 | Outpatient (CLI) | payer OTHER, SELFPAY ==
--- NOTE | ~2021-10-03 | US_ITS ---
EXAMINATION: US pelvic complete w TV EXAM DATE: 10/03/2021 14:33 INDICATION: Pelvic and perineal pain. TECHNIQUE: Pelvic transabdominal and transvaginal sonogram was performed. There are multiple graysca le and Doppler images available for interpretation. There is no prior study for comparison. FINDINGS: Uterus measures 6.3 x 2.8 x 3.7 cm, and is morphologically normal. Endometrial stripe lluvia sures 6 mm, within normal limits. There are nabothian cysts. There is small free pelvic fluid, phys iologic from recently ruptured cyst. Right adnexa: The ovary measures 3.7 x 2.3 x 3.4 cm and is morphologically normal, contains the domin ant physiologic follicle measuring 2 cm. Ovarian vascular flow confirmed. Left adnexa: The ovary is not identified. There is no adnexal mass. Reportedly patient had oophorecto my. IMPRESSION: Unremarkable pelvic ultrasound exam. Reviewed, dictated and finalized at location B. OGICAL TECHNICAL OFFICER
== END 2021-10-03 13:42 | disposition home or self-care (01) ==
LOC: ANHIMG 13:44
PROVIDERS: PCP Internal Medicine; Visit Provider Physician Assistant
DX: R10.2 Pelvic and perineal pain (principal)
CPT/HCPCS: 76830; 76856

== ENCOUNTER 2021-12-27 09:28 | Outpatient (CLI) | payer BC, OTHER, SELFPAY ==
--- NOTE | ~2021-12-27 | MR_ITS ---
EXAMINATION: MR brain/brain stem wo/w con DATE: 12/27/2021 10:22 INDICATION: Chiari malformation with compression of the brain. TECHNIQUE: Magnetic resonance imaging (MRI) of the brain and brainstem was performed without and with 15 mL Multihance intravenous contrast. Sequences included sagittal and axial T1-weighted SE, axial d iffusion-weighted FS SE, axial T2*-weighted GRE, axial T2-weighted FLAIR, and axial T2-weighted FSE. Postcontrast axial, sagittal and coronal T1-weighted SE was obtained. Apparent diffusion coefficient (ADC) maps were created. COMPARISON: 11/23/2017 FINDINGS: There are no areas of restricted diffusion to suggest acute infarction. No intracranial hemorrhage or abnormal intracranial mass lesion. There are no intraparenchymal signal abnormalities seen on the ot her pulse sequences. The ventricles are symmetric and normal in size. There are no abnormal extra-axi al fluid collections. Chiari I malformation with cerebellar tonsils extending below the inferior jenny in of the foramen magnum, 6 mm on the right and 7 mm on the left. No evident syrinx identified in the visualized upper cervical spine. Flow voids are seen in the cerebral arteries on the T2-weighted seq uences consistent with their expected patency. Minimal mucoperiosteal thickening the bilateral ethmoi d sinuses. Visualized orbits and soft tissues are unremarkable. There are no areas of abnormal enhanc ement on the post contrast images. IMPRESSION: 1. Significant change in a Chiari I malformation. Reviewed, dictated and finalized at location A.
[2021-12-27 09:58] LABS: Estimated Glomerular Filt Rate > 60
== END 2021-12-27 09:29 | disposition home or self-care (01) ==
PROVIDERS: PCP Internal Medicine; Visit Provider Internal Medicine
DX: G93.5 Compression of brain (principal)
CPT/HCPCS: 70553; A9577

== ENCOUNTER 2022-03-20 11:40 | Outpatient (CLI) | payer BC, OTHER, SELFPAY ==
[2022-03-20 13:46] LABS: HIV 1/2 Ab P24 Ag Result Negative (Negative)
[2022-03-20 13:48] LABS: HAV RESULT Negative (Negative); Hepatitis B Core IgM Result Negative (Negative)
[2022-03-20 14:00] LABS: Hepatitis C Virus Antibody Negative (Negative)
[2022-03-20 16:31] LABS: Rapid Plasma Reagin Reactive (NonReactive)
[2022-03-21 05:47] LABS: Hepatitis B Surface Antigen 1.15 S/C; Hepatitis B Surface Antigen Reactive (Negative); Hepatitis B Surface Antigen Re 1.01 S/C; Hepatitis B Surface Antigen Re 1.06 S/C
[2022-03-25 18:52] LABS: Treponema pallidum Ab FTA ABS Reactive (Nonreactive)
[2022-03-26 10:24] LABS: Reference Lab Test Result Nonreactive
== END 2022-03-20 11:41 | disposition home or self-care (01) ==
LOC: ANHLAB 11:46
PROVIDERS: PCP Internal Medicine; Visit Provider Physician Assistant
DX: Z11.3 Encounter for screening for infections with a predominantly sexual mode of transmission (principal)
CPT/HCPCS: 36415; 80074; 86592; 86703; 86780; 87491; 87591; G0432

== ENCOUNTER 2022-07-10 12:39 | Outpatient (CLI) | payer BC, OTHER, SELFPAY ==
--- NOTE | ~2022-07-10 | CT_ITS ---
EXAMINATION: CT sinus wo con DATE: 07/10/2022 12:59 INDICATION: Headache. Constant sinus pressure, mostly on the left. Chronic sinusitis. TECHNIQUE: Computed tomography (CT) of the paranasal sinuses was performed without contrast. Iterativ e reconstruction technique was employed. Exam dose: 304.88 mGy-cm total exam DLP. COMPARISON: None FINDINGS: The anterior nasal septum bows mildly leftward in the posterior septum mildly rightward. There is prominent soft tissue swelling of the nasal turbinates, more prominent on the left. The ostiomeatal units are patent bilaterally. The paranasal sinuses are normally developed and aerated without any significant mucoperiosteal thick ening or any air-fluid level or soft tissue mass density. The mastoid air cells are normally developed and aerated bilaterally. Middle and inner ear apparatus appear normal bilaterally. IMPRESSION: Minimal nasal septal bowing Soft tissue prominence of the nasal turbinates, left slightly greater than right Patent paranasal sinuses, ostiomeatal units and mastoid air cells Reviewed, dictated and finalized at Location A. Reviewed, dictated and finalized at location B. AND GATE BUILDER IMPRESSION: Minimal nasal septal bowing Soft tissue prominence of the nasal turbinates, left slightly greater than righ t Patent paranasal sinuses, ostiomeatal units and mastoid air cells
== END 2022-07-10 12:40 | disposition home or self-care (01) ==
PROVIDERS: PCP Internal Medicine; Visit Provider Otolaryngology
DX: J32.9 Chronic sinusitis, unspecified (principal); R44.8 Other symptoms and signs involving general sensations and perceptions; R51.9 Headache, unspecified
CPT/HCPCS: 70486

== ENCOUNTER 2022-08-25 10:52 | Outpatient (CLI) | payer BC, OTHER, SELFPAY ==
[2022-08-25 16:43] LABS: Rapid Plasma Reagin Reactive (NonReactive)
[2022-08-27 19:20] LABS: Treponema pallidum Ab FTA ABS Reactive (Nonreactive)
== END 2022-08-25 10:53 | disposition home or self-care (01) ==
PROVIDERS: PCP Internal Medicine; Visit Provider Family Medicine
DX: A52.8 Late syphilis, latent (principal)
CPT/HCPCS: 36415; 86592; 86780

== ENCOUNTER 2023-11-22 12:25 | Outpatient (CLI) | payer BC, OTHER, SELFPAY ==
[2023-11-22 14:01] LABS: HIV 1/2 Ab P24 Ag Result Negative (Negative)
[2023-11-22 14:37] LABS: Hepatitis C Virus Antibody Negative (Negative)
[2023-11-22 15:32] LABS: Rapid Plasma Reagin Reactive (NonReactive)
[2023-11-22 16:46] LABS: Trichomonas Vag PCR NOT DETECTED (NOT DETECTE)
[2023-11-22 17:11] LABS: Chlamydia trachomatis NOT DETECTED (NOT DETECTE); Neisseria gonorrhoeae PCR NOT DETECTED (NOT DETECTE)
[2023-11-26 01:27] LABS: Herpes Simplex Type 1 DNA PCR Not Detected (Not Detected); Herpes Simplex Type 2 DNA PCR Not Detected (Not Detected)
== END 2023-11-22 12:26 | disposition home or self-care (01) ==
PROVIDERS: PCP Internal Medicine; Visit Provider Nurse Practitioner
DX: Z72.51 High risk heterosexual behavior (principal)
CPT/HCPCS: 36415; 86592; 86703; 86780; 86803; 87491; 87529; 87591; 87661; G0432

== ENCOUNTER 2024-05-26 11:30 | Emergency (ER) | payer BC, SELFPAY ==
--- NOTE | ~2024-05-26 | XR_ITS ---
Portable chest x-ray Comparison: 08/07/2021 Clinical History: Dizziness, history of CSF leak Findings: Lungs are clear, without focal consolidation or pleural effusion. Cardiomediastinal silho uette is stable. 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 Impression: No acute abnormality. Embolization material projecting over the upper thoracic spine related to prior history of venous fis agnelica repair/CSF leak repair. Reviewed, dictated and finalized at location . Impression: No acute abnormality. Embolization material projecting over the upper thoracic spine related to prior history of venous fistula repair/CSF leak repair.
--- NOTE | ~2024-05-26 | CT_ITS ---
EXAMINATION: CT brain wo con DATE: 05/26/2024 12:57 INDICATION: Dizziness TECHNIQUE: Computed tomography (CT) of the head was performed without intravenous contrast. Sagittal and coronal reconstructions were performed. The mA was adjusted according to patient size. Iterative reconstruction technique was employed. The dose-length product was 605.33 mGy-cm. COMPARISON: Brain MR dated 12/27/2021 FINDINGS: No acute intracranial hemorrhage, acute infarction or abnormal extra axial fluid collection. Ventricl es are normal and symmetric. No mass/mass effect. No significant interval change in mild caudal displ acement of the bilateral cerebellar tonsils at the foramen magnum consistent with Chiari I malformati on. The orbits, paranasal sinuses and mastoid air cells are normal. IMPRESSION: 1. Unchanged Chiari I malformation. No acute intracranial process. Reviewed, dictated and finalized at location A.
[2024-05-26 11:34] VITALS: BP 118/84; PULSE 75; RESP 18; TEMP 36.7; O2SAT 100
--- NOTE | 2024-05-26 12:12 | ED.GENADULT ---
HPI - General Adult General Chief complaint: Unspecified Stated complaint: sinus infection- ENT sent R/O meningitis Time Seen by Provider: 05/26/24 12:07 Source: patient Mode of arrival: ambulatory Limitations: no limitations History of Present Illness HPI narrative: PATIENT DROVE HERSELF TO THE EMERGENCY ROOM COMPLAINING OF DIZZINESS FOR THE LAST 3 MONTHS. WAS SEEN BY ENT 1 WEEK AGO AND STARTED ON ANTIBIOTIC AND PREDNISONE FOR POSSIBLE SINUS INFECTION, NO IMPROVEMENT. DIZZINESS GET WORSE STANDING AND WALKING BETTER LYING DOWN STILL. SHE DENIES ANY FEVER, CHILLS, NAUSEA, VOMITING, CHEST PAIN, SHORTNESS OF BREATH, HEADACHE. PATIENT HAD SIMILAR SYMPTOMS LAST YEAR AND HAD DIAGNOSIS OF CEREBROSPINAL FLUID LEAK, SPONTANEOUS, CHIARI MALFORMATION. PATIENT UNDERWENT SURGERY, BLOOD PATCH, EMBOLIZATION OF SINUS FISTULA AT [facility] JULY 2023 WITH REMARKABLE IMPROVEMENT. PATIENT REPORTS THE SYMPTOMS STARTED COMING BACK AGAIN 3 MONTHS AGO. Related Data Home Medications Medication Instructions Recorded Confirmed atogepant 60 mg tablet (Qulipta) 60 mg PO DAILY 12/20/23 02/17/24 ubrogepant 100 mg tablet (Ubrelvy) 100 mg PO ONCE 12/20/23 02/17/24 Allergies Allergy/AdvReac Type Severity Reaction Status Date / Time No Known Allergies Allergy Mild Verified 05/26/24 11:40 Review of Systems Review of Systems: All systems reviewed & are unremarkable except as noted in HPI and below PMFSH Past Medical History Medical History Airway obstruction 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 Migraines Vertigo Surgical History Surgical History No significant past surgical history Family History Family History Mother Patient's mother is in good health Father Patient's father is in good health Social History Social History Social History: Caffeine-coffee Smoking status: Never smoker Alcohol intake: current Alcohol use details: socially Substance use: never Substance use type: does not use Do You Feel Safe in your Home?: Yes Lack of Transportation: No Lack of Food: Never True Current Housing: I Have Housing Concerned About Future Housing: No Difficulty Paying Gas/Electric Bills: No Difficulty Paying for Meds: No Currently Unemployed: No Education: Associate Degree Difficulty w/ Childcare or Family Care: No Gender identity (if verbalized by the patient): Female Sexual Orientation (if Verbalized by the Patient): Straight or Heterosexual Exam Narrative: GENERAL APPEARANCE: WELL-DEVELOPED, WELL-NOURISHED SKIN: NORMAL COLOR HEAD: NORMOCEPHALIC, NONTRAUMATIC EYES: CLEAR CONJUNCTIVA ENT: OROPHARYNX NORMAL, EARS NORMAL, NOSE NORMAL NECK: SUPPLE, NONTENDER CHEST AND RESPIRATORY: AIRWAY PATENT, NO RESPIRATORY DISTRESS, NO ACCESSORY MUSCLE USE HEART: REGULAR RATE/RHYTHM ABDOMEN: SOFT, NONTENDER, NO ORGANOMEGALY, QUIET BOWEL SOUNDS VASCULAR: NORMAL PERIPHERAL PULSES, NORMAL CAPILLARY REFILL. MUSCULOSKELETAL: NORMAL RANGE OF MOTION, NONTENDER BACK NEUROLOGIC: ALERT AND ORIENTED ?3, TIRE CENTER SUPERVISOR IS NORMAL TESTED, NO GROSS MOTOR DEFICIT Course Consultations Consultation #1: DR BROWNLEE PATIENT CANNOT BE MANAGED IN OUR FACILITY, SENT PATIENT SOMEWHERE ELSE Date: 05/26/24 Consultation #2: DR FLORES NEUROSURGEON AT [facility] WHO REQUESTED THAT PATIENT DOES NOT NEED TO BE TRANSFERRED AT THIS TIME AND CAN FOLLOW-UP WITH THEM OUTPATIENT Date: 05/26/24 Vital Signs Vital signs:
--- NOTE | 2024-05-26 12:14 | ECG_ITS ---
Test Date: 2024-05-26 12:31:34 Measurements Intervals Gates Rate: 69 P: 62 NH: 127 QRS: 77 QRSD: 86 T: 63 QT: 408 QTc: 438 Interpretive Statements SINUS RHYTHM No previous ECG available for comparison Electronically Signed On 05-26-2024 13:14:41 CDT by Rafa Maza M.D.
[2024-05-26 12:38] LABS: BEDSIDEPREGUCG Negative (Negative)
[2024-05-26 12:44] LABS: Basophils Absolute Auto 0.1 K/mm3 (0.0-0.1); Eosinophils Absolute Auto 0.1 K/mm3 (0-0.3); Eosinophils Percent Auto 1.2 % (0-4.4); Hematocrit 45.4 % (37.0-47.0); Hemoglobin 15.5 g/dL (12.0-15.0); Immature Granulocyte Absolute 0.03 K/mm3 (0.00-0.031); Immature Granulocyte Percent A 0.5 % (0-0.5); Lymphocytes Percent Auto 31.9 % (18.3-44.2); Mean Corpuscular HGB Conc 34.1 g/dl (32-36); Mean Corpuscular Hemoglobin 30.8 pg (26-34); Mean Corpuscular Volume 90.3 fl (80-100); Mean Platelet Volume 9.4 fl (7.4-10.4); Monocytes Absolute Auto 0.4 K/mm3 (0.1-0.6); Monocytes Percent Auto 6.5 % (2.6-8.5); Neutrophils Absolute Auto 3.5 K/mm3 (1.3-6.7); Neutrophils Percent Auto 58.9 % (45.5-73.1); Platelet Count Result 223 k/mm3 (150-375); Red Blood Count 5.03 M/mm3 (4.2-5.4); Red Cell Distribution Width 12.5 % (11.5-14.5)
[2024-05-26 12:51] LABS: Add Urine Microscopic? YES; Appearance Urine Turbid (Clear); Bacteria Urine 1+ /hpf; Bilirubin Urine Negative (Negative); Blood Urine Negative (Negative); Color Urine Yellow (Yellow); Glucose Urine UA Negative (Negative); Ketones Urine Trace mg/dL (Negative); Leukocyte Esterase Ur 2+ LEU/UL (Negative); Nitrate Urine Negative (Negative); Non Pathogenic Casts 0-2; Protein Urine Trace mg/dL (Negative); RBC Urine 0-2 /hpf (0-2); Specific Grav Ur 1.023 (1.001-1.035); Squamous Epithelial Cell Urine Few /hpf (Few); WBC Urine 51-100 /hpf (0-3)
[2024-05-26 12:53] LABS: Alanine Aminotransferase 13 U/L (6-35); Albumin Level 4.8 g/dL (3.5-5.1); Alkaline Phosphatase 67 U/L (38-126); Anion Gap 9 mmol/L (4-12); Aspartate Amino Transferase 22 U/L (14-36); Bilirubin,Total 0.6 mg/dL (0.2-1.3); Blood Urea Nitrogen 15 mg/dL (7-17); Calcium 9.2 mg/dL (8.4-10.2); Carbon Dioxide 28 mmol/L (22-30); Chloride 101 mmol/L (98-107); Estimated CRCL calculation 66 ml/min; Estimated Glomerular Filt Rate > 60; Glucose 82 mg/dL (65-110); Potassium 4.1 mmol/L (3.4-5.0); Sodium 138 mmol/L (137-145)
[2024-05-26 13:25] LABS: Amphetamine Screen Urine Negative (Negative); Barbiturate Screen Urine Negative (Negative); Benzodiazepines Screen Urine Negative (Negative); Cannabinoid Screen Urine Negative (Negative); Cocaine Screen Urine Negative (Negative); Methadone Screen Urine Negative (Negative); Opiate Screen Urine Negative (Negative); Phencyclidine Screen Urine Negative (Negative)
[2024-05-26 13:57] VITALS: BP 121/81; PULSE 61; RESP 17; O2SAT 100
== END 2024-05-26 13:59 | disposition home or self-care (01) ==
PROVIDERS: Emergency Provider Emergency Medicine; PCP Nurse Practitioner
DX: N39.0 Urinary tract infection, site not specified (principal); R42 Dizziness and giddiness; G93.5 Compression of brain; Z79.899 Other long term (current) drug therapy
CPT/HCPCS: 36415; 70450; 71045; 80053; 80307; 81001; 81025; 85025; 87086; 93005; 99284

== ENCOUNTER 2024-12-24 08:52 | Emergency (ER) | payer OTHER, SELFPAY ==
--- OUTSIDE RECORDS SUMMARY | 2024-12-24 08:56 | XMS_ITS | Clinical Summary ---
Author Organization [facility] Address [address] [place] [address] Phone Care Team Providers Care Case Liner Name Role Phone Hiren Brand DO Primary Care Provider Dale Viera MD Unavailable [phone] Allergies Active Allergy Reactions Criticality Noted Date Comments Hydrocodone Nausea 04/13/2018 Medications Multiple Vitamins-Mineral s (MULTIVITAMIN PO) Take by mouth. Active Ondansetron HCl (ZOFRAN PO) Take by mouth. Active DIAZEPAM PO Take by mouth. Active Family History Medical History Relation Name Comments Skin Cancer Father Skin Cancer Mother Relation Name Status Comments Father Alive Mother Alive Social History Tobacco Use Types Packs/Day Years Used Date Smoking Tobacco: Never Smokeless Tobacco: Never Tobacco Cessation:Counseling Given: Not Answered Alcohol Use Standard Drinks/Week Comments Yes 0 (1 standard drink = 0.6 oz pur e alcohol) social two drinks per month Sexually Active Control Partners Comments Yes Comments Unknown Sex and Gender Information Value Date Recorded Sex Assigned at Not on file Legal Sex Female 12:24 AM CDT Gender Identity Not on file Sexual Orientation Not on file Last Filed Vital Signs Vital Sign Reading Time Taken Comments Blood Pressure 116/74 02/15/2024 2:11 PM CDT Pulse 72 02/15/2024 2:11 PM CDT Temperature 36.6 C (97.9 F) 02/15/2024 2:11 PM CDT Respiratory Rate 16 02/15/2024 2:11 PM CDT Oxygen Saturation 99% 02/15/2024 2:11 PM CDT Inhaled Oxygen Concentration - - Weight 47.4 kg (104 lb 9.6 oz) 02/15/2024 2:11 P M CDT Height 167.6 cm (5' 6 ) 02/15/2024 2:11 PM CDT Body Mass Index 16.88 02/15/2024 2:11 PM CDT Plan of Treatment Health Maintenance Due Date Last Done Comments Hepatitis C Virus (HCV) Screening 1980 Mammogram 1980 Pap Smear 01/05/2001 Cervical Cancer Screening (CCS) 01/05/2010 HPV/Cotest 01/05/2010 Hepatitis B Immunization (2 of 3 - 19+ 3-dose series) 01/31/2018 01/03/2018 Discussion re Starting/Frequency of Mammograms 2020 Influenza Immunization (#1) 2024 09/08/2017, 1 SARS-COV-2 Immunization ( - season) 2024 07/05/2021, 05/17/2021 Respiratory Syncytial Virus (RSV) Immunization (Adult) (1 - 1-dose 75+ series) 01/05/2055 DTaP/Tdap/Td Immunization Discontinued 2017, 05/17/1996, 03/14/1985, Additional history exists TdaP Immunization Completed 01/03/2018 Meningococcal Immunization (ACWY) Aged Out No longer eligible based on patient's age to complete this topic Pneumococcal Immunization Combined Aged Out No longer eligible based on patient's age to complete this topic Rotavirus Immunization Aged Out No lo nger eligible based on patient's age to complete this topic Insurance Care Teams Case Liner Relationship Specialty Start Date End Date Hiren Brand DO [facility] [place] [address] PCP - General Internal Medicine 12/10/17 Dale Viera MD [address] [place] [phone] Consulting Physician Neurology 05/01/22
--- OUTSIDE RECORDS SUMMARY | 2024-12-24 08:56 | XMS_ITS | Encounter Summary ---
Author Organization [facility] Address [address] [place] [address] Care Team Providers Care Dog Breeder Name Role Phone Hiren Brand DO Primary Care Provider [phone] Reason for Visit * Reason Onset Date Comments Appointment 10/05/2022 Encounter Details Date Type Department Care Team (Late st Contact Info) Description 10/05/2022 Telephone [facility] [address] [place] [address] Deyanira Lewis MD [address] [place] [address] Appointment Social History Tobacco Use Types Packs/Day Years Used Date Smoking Tobacco: Never Smokeless Tobacco: Never Comments Unknown Sex and Gender Information Value Date Recorded Sex Assigned at Not on file Legal Sex Female 6:23 AM OPERATIONAL TRAINER Gender Identity Not on file Sexual Orientation Not on file documented as of this encounter Miscellaneous Notes * Telephone Encounter - Deyanira Lewis MD - 10/14/2022 6:11 PM CST PCCs Although this should not be an urgent procedure, Can go ahead and schedule for october 26 at in afternoon Thank you. ATIONAL TRAINER * Telephone Encounter - Wendy Linn - 10/05/2022 1:33 PM CST Pt needs to schedule a ED&C procedure with in a week or two with Dr Lewis. ATIONAL TRAINER documented in this encounter Plan of Treatment Upcoming Encounters Date Type Department Care Team (Late st Contact Info) Description 03/14/2025 3:50 PM CDT Office Visit [facility] - Dermatology [address] [place] [address], [place] [address] Deyanira Lewis MD [address] [place] [address] [address] [place] [address] documented as of this encounter Visit Diagnoses Not on filedocumented in this encounter Care Teams Dog Breeder Relationship Specialty Start Date End Date Hiren Brand DO [address] [place] [phone] PCP - General Internal Medicine 06/09/24 documented as of this encounter
--- OUTSIDE RECORDS SUMMARY | 2024-12-24 08:56 | XMS_ITS | Clinical Summary ---
Author Organization [facility] Address [address] [place] [address] Care Team Providers Care Features Reporter Name Role Phone Hiren Brand DO Primary Care Provider [phone] Source Comments [facility],non-owned Affiliates and Associated Physician Practices is amultiple site organization consisting of ambulatory clinics and hospital sitesin [place], [place], [place] and [place]. This disclosure is being madepursuant to the Care Everywhere program and may not contain all informatio navailable regarding this patient. Last updated 18.[facility] Allergies Active Allergy Reactions Criticality Noted Date Comments Hydrocodone Nausea and/or Vomiting 04/13/2018 Medications * Be aware that medications may not be up to date on this document. Alwaysverify current medications with the patient. multivitamin (OPURITY) CHEW tablet every 24 hours Activ e Drospirenone (SLYND) 4 MG TABS tablet Take 1 tablet by mouth once daily Active diazePAM (VALIUM) 5 MG tablet Take 1 (one) tablet by mouth as needed Active Ondansetron HCl (ZOFRAN PO) Take by mouth as needed Active triamcinolone acetonide (Kenalog) 0.1 % ointmentIndicat ions:Other specified dermatitis Apply to affected area when twice daily PRN. 30 days supply. 80 g 5 3 Active Additional Information Patient not taking.Reported on 06/09/2024 clobetasol (Temovate) 0.05 % solutionIndicat ions:Seborrheic dermatitis Apply to affected area on scalp daily for up to 2 weeks. 50 mL 4 Active Additional Information Patient not taking.Reported on 06/09/2024 ketoconazole (Nizoral) 2 % shampooIndicati ons:Seborrheic dermatitis Apply to wet hair, leave on for 3 minutes, then rinse; 2-3 times weekly. 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 Recommended increasing regimen to twice weekly for treatment. Diffuse photodamage of skin 02/05/2021 Assessment & Plan (02/05/2021 11:22 AM CDT): Daily broad spectrum SPF to face, monthly self exams, routine FBSE q6-12 months recommended. Avoid tanning. Tanning bed exposure, initial encounter 02/06/20 Assessment & Plan (02/05/2021 11:23 AM CDT): Extensive counseling provided regarding dangers of indoor tanning, particularly given skin type and family history of melanoma. Encouraged cessation. Follicular cyst of ovary 10/05/2019 Bacterial vaginosis 01/24/2019 Carrier of group B Streptococcus 01/24/2019 Immunizations Immunization Administration Dates Next Due Edgardo Black Lotus primary monoval ent 12+ yr 0.3mL Purple cap 07/05/2021,05/17/2021 DTP, HISTORIC VACCINE 03/14/1985, 984,1980,1979,1980 HEP A VACCINE, ADULT 04/21/2004 HEP B VACCINE, ADULT 3 DOSE 01/03/2018 Human Papilloma Virus Nineva lent Vaccine 04/26/2020,12/15/2019,10/05/2019 INFLUENZA VACCINE, QUADR. (F LUZONE; FLULAVAL; FLUARIX; AFLURIA QUADRIVALENT; 6MO+), 0.5 ML (IIV4) 09/08/2017 INFLUENZA VACCINE, TRIV. (FL UZONE; FLULAVAL; FLUARIX; AFLURIA TRIVALENT; 6MO+), 0.5 ML (IIV3) 05/24/2015 MMR VACCINE 05/17/1996,03/19/1983 POLIO OPV 03/14/1985, 4,1980,1979,1980 TD (AGE 7-ADULT) 05/17/1996 TDAP, HISTORIC VACCINE 01/03/2018 Family History Medical History Relation Name Comments None Known Brother Cancer - Skin, Non Melanoma Father Lupus Maternal Aunt None Known Maternal Grandfather None Known Maternal Grandmother None Known Maternal Uncle Cancer - Skin, Melanoma Mother Cancer - Skin, Non Melanoma Mother None Known Other None Known Paternal Aunt None Known Paternal Grandfather None Known Paternal Grandmother None Known Paternal Uncle Psoriasis Sister Asthma Neg Hx CVA Neg Hx Cancer - Breast Neg Hx Cancer - Other Neg Hx Eczema Neg Hx Hemophilia Neg Hx Relation Name Status Comments Brother Father Maternal Aunt Maternal Grandfather Maternal Grandmother Maternal Uncle Mother Other Paternal Aunt Paternal Grandfather Paternal Grandmother Paternal Uncle Sister Social History Tobacco Use Types Packs/Day Years Used Date Smoking Tobacco: Never Smokeless Tobacco: Never Tobacco Cessation:Counseling Given: Not Answered Alcohol Use Standard Drinks/Week Comments Yes 0 (1 standard drink = 0.6 oz pur e alcohol) soc Comments Unknown Sex and Gender Information Value Date Recorded Sex Assigned at Not on file Legal Sex Female 6:23 AM CUSTOMER SERVICES COORDINATOR Gender Identity Not on file Sexual Orientation Not on file Last Filed Vital Signs Vital Sign Reading Time Taken Comments Blood Pressure 121/84 06/09/2024 11:05 AM CDT Pulse 71 06/09/2024 11:05 AM CDT Temperature - - Respiratory Rate - - Oxygen Saturation - - Inhaled Oxygen Concentration - - Weight 50 kg (110 lb 3.2 oz) 06/09/2024 11:05 AM CDT Height 167.6 cm (5' 6 ) 06/09/2024 11:05 AM CDT Body Mass Index 17.79 06/09/2024 11:05 AM CDT Plan of Treatment Upcoming Encounters Date Type Department Care Team (Late st Contact Info) Description 03/14/2025 3:50 PM CDT Office Visit [facility] - Dermatology [address] [place] [address], [facility] [place] [phone] Deyanira Lewis MD [address] [place] [address] [address] [place] [address] Health Maintenance Due Date Last Done Comments LIPID TESTING 1980 MAMMOGRAM 1980 PAP SMEAR 1980 HIV SCREENING 01/05/1995 HEPATITIS C SCREENING 01/01/1998 HEPATITIS B VACCINE (2 of 3 - 19+ 3-dose series) 01/31/2018 01/03/2018 COVID-19 VACCINE ( season) 2024 07/05/2021, 05/17/2021 DEPRESSION SCREENING 08/23/2024 INFLUENZA VACCINE (Season Ended) 2025 09/08/2017, 05/24/2015 DTAP/TDAP/TD VACCINES (8 - Td or Tdap) 01/04/2028 01/03/2018, 05/17/1996, 03/14/1985, Additional history exists ZOSTER VACCINE (1 of 2) 01/05/2030 HPV VACCINE Completed 04/26/2020, 11/22, 10/05/2019 HIB VACCINE Aged Out No longer eligi ble based on patient's age to complete this topic MENINGOCOCCAL (Group B) VACCINE SHARED DECISION-MAKING Aged Out No longer eligible based on patient's age to complete this topic MENINGOCOCCAL GROUPS A/C/Y/W VACCINE Aged Out No longer eligible based on patient's age to complete this topic PNEUMOCOCCAL VACCINE Aged Out No long er eligible based on patient's age to complete this topic [place] [address] Care Teams Features Reporter Relationship Specialty Start Date End Date Hiren Brand DO [address] [place] [phone] PCP - General Internal Medicine 06/09/24
--- OUTSIDE RECORDS SUMMARY | 2024-12-24 08:56 | XMS_ITS | Data Portability ---
Author Organization [place] [facility], Main Office Address [address] [place] [address] Assessment No assessment recorded. Plan of Treatment Reminders Order Date Submit Date Provider Last Modified By Organization Details Last Modified Time Details Appointments None recorded. Lab None recorded. Referral None recorded. Procedures None recorded. Surgeries None recorded. Imaging None recorded. Medication Orders prednisone 20 mg tablet 2023 [facility] [address] [place], [address], 15:18:56 cefdinir 300 mg capsule 2023 [facility] [address] [place], [address], 4 15:18:55 Diflucan 150 mg tablet 2023 [facility] [address] [place], [address], 4 15:20:36 Patient TargetsNo targets recorded. Patient Instructions Encounter Date Encounter Id Patient Instructions Last Modified By Organization Details Last Modified Time 05/18/2024 [id number] patient will be treated for sinusitis with cefdinir and prednisone. She will obtain a CT of her sinus for further diagnostic measures. [email or web address] Not available 05/18/2024 15:19:51 Reason for Referral None Reported. Results Created Date Observation Date Name Description Value Unit Range Abnormal Flag Note LastModifiedBy Organization Detail LastModifiedTime 05/25/20 24 05/24/2024 CT, sinus es, w/o contr ast No observ ation record ed. [email or web address] [facility] [address] [place], [address], 05/30/2024 11:22:10 06/13/2005/24/2024 CT, sinus es, w/o contr ast No observ ation record ed. [address] ([employer]) [address] [place], [address], 07/04/2024 09:52:02 Result Notes None recorded. Problems Name Problem SNOMED Code Status Onset Date Resolution Date Notes Provider Name and Address Organization Details Recorded Time Chronic sinusitis 73302008 Active 2023 Ashlie Richards RN null, [facility] [employer] 4 15:13:44 Chronic sinusitis 40508558 Active 2023 MADISON Lui [address] [facility], [facility] [address], [place], [address] , [facility] [employer] 4 15:18:17 Cerebrospinal fluid otorrhea 00819685 Active 2023 Ashlie Richards RN null, [employer] 4 16:15:15 Problem Notes None recorded. Procedures Surgical History None recorded. Imaging Results Imaging Date Name Status LastModified by Organiz ation Details LastModified Time 05/24/2024 CT, sinuses, w/o contrast completed [address] [place], [address], 05/30/2024 11:22:10 05/24/2024 CT, sinuses, w/o contrast completed [address] ([employer]) [address] [place], [address], 07/04/2024 09:52:02 Procedure Notes None recorded. Medical Equipment None Reported. Allergies No known drug allergies Medications Name Sig Start Date Stop Date Status Note LastModified by Organization Details LastModified Time ketoconazol e 2 % shampoo APPLY TO WET HAIR,LEAV E ON FOR 3 MINUTES, THEN RINSE: 2-3 TIMES WEEKLY active Not Available Not Available No t Available fluconazole 150 mg tablet TAKE ONE TABLET BY MOUTH AT ONSET OF SYMPTOMS. IF SYMPTOMS PERSIST, TAKE SECOND TABLET ON DAY 3 active Not Available Not Available No t Available prednisone 20 mg tablet TAKE 1 TABLET BY MOUTH TWICE DAILY FOR 5 DAYS active Not Available Not Available No t Available ciprofloxac in 500 mg tablet TAKE 1 TABLET BY MOUTH EVERY 12 HOURS active Not Available Not Available No t Available triamcinolo ne acetonide 0.1 % topical ointment APPLY OINTMENT TOPICALLY TO AFFECTED AREA TWICE DAILY NEEDED active Not Available Not Available No t Available levofloxaci n 500 mg tablet TAKE 1 TABLET BY MOUTH EVERY 24 HOURS FOR 10 DAYS active Not Available Not Available No t Available clobetasol 0.05 % scalp solution APPLY SOLUTION TOPICALLY TO AFFECTED AREA(S) ON SCALP DAILY FOR UP TO 2 WEEKS active Not Available Not Available No t Available cefdinir 300 mg capsule TAKE 1 CAPSULE BY MOUTH EVERY 12 HOURS FOR 10 DAYS active Not Available Not Available No t Available diazepam 5 mg tablet TAKE 1/2 TO 1 TABLET BY MOUTH DAILY NEEDED, APPOINTME NT NEEDED FOR FURTHER REFILLS active Not Available Not Available No t Available diazepam 05/18 completed Not Available Not Available Not Available Flonase Allergy Relief active Not Available Not Available Not Available Vitals Date Recorded Body height Body mass index (BMI) Body weight Body temperature Provider Name and Address Organization Details Last Updated DateTime 05/18/2024 167.64 cm 17.6 kg/m2 92364.29 g 98.2 [degF] Ashlie Richards RN [facility] 05/18/2024 15:04:04 Social History Question Answer Notes LastModified by Organizat ion Details LastModified Time Tobacco Smoking Status Never Smoker Morenita valenzuela, [facility] 05/18/2024 14:14:01 What Is Your Level Of Alcohol Consumption? Occasional Information not available 05/18/2024 Sex: Unknown Functional Status None recorded. Mental Status None recorded. Family History Relationship Description Onset Age of this Age Resolved Age Notes LastModified by Organization Details LastModified Time Father No current problems or disability [email or web address] Not available 05/18 15:03:27 Mother No current problems or disability [email or web address] Not available 05/18 15:03:27 Notes:no ent Medical History Condition Response MRSA N ALLERGIES/HAYFEVER N BACK INJECTIONS N LUNG DISEASE/DISORDER N ESRD N HISTORY OF DRUG ABUSE N INSOMNIA N RADIATION / CHEMOTHERAPY N COPD N HIGH CHOLESTEROL / HYPERLIPIDEMIA N HYPERTHYROIDISM N PVD N BLOOD DISEASES N EAR OR HEARING PROBLEMS N HYPOTHYROIDISM N SHINGLES N DEPRESSION (INCLUDING POST ) N BACK / NECK PROBLEMS N HAVE YOU BEEN HOSPITALIZED OR SEEN IN E ER IN THE PAST YEAR ? N FAILED BACK SYNDROME N STROKE/TIA N POLYCYSTIC OVARIES N OBESITY N ANEURYSM N HISTORY WITH COMPLICATIONS WITH ANESTHES IA ? N Do you have Advance directive? N USE OF BLOOD THINNERS N NO SIGNIFICANT PAST MEDICAL HISTORY N DIABETES, TYPE N VON WILLIBRAND'S DISEASE N PARATHYROID DISEASE N ENT N SEASONAL ALLERGIES Y HEARTBURN / REFLUX N POST LAMINECTOMY SYNDROME N HEPATITIS / LIVER DISEASE N SLEEP DISORDER N ARTERIAL INSUFFICIENCY N SEIZURES/EPILEPSY N HEADACHES/MIGRAINES N CHF N PACEMAKER N DIZZINESS N HEART DISEASE/HEART PROBLEMS N AIDS/HIV N NEUROPSYCHOLOGICAL Y HYPERTENSION N CANCER: SPECIFY N TOURETTE'S N BLOOD TRANSFUSION N ANEMIA/BLOOD DISORDER N ANESTHESIA COMPLICATIONS N CHRONIC EAR INFECTIONS N ATRIAL FIBRILLATION N AUTOIMMUNE DISEASE N TUBERCULOSIS N Gynecological HistoryNo gynecological history recorded. Obstetrics History GPAL:G 0 P 0 0 0 0 Past Encounters Encounter ID Performer Location Encounter Start Date Encounter Closed Date Diagnosis/Indication Diagnosis SNOMED-CT Code Diagnosis ICD10 Code Diagnosis Note [id number] Levy Johnson MD [facility] [address] [place] [address] 05/18/2024 14:44:59 05/18/2024 15:21:19 Chronic sinusitis 55080573 J32.9 Health Concerns Section Related Observation LastModified by Organization Detai ls LastModified Time None Recorded Concern Status LastModified by Organization Details LastModified Time None Recorded Advance Directives Directive None Recorded Payers Encounter Date Sequence Insurance Name Policy Number Policy Vasquez Covered Member ID Vasquez Member ID Guarantor Name 05/18/2024 1 [employer] [id number] Savannah Darnell [id number] Savannah Darnell Notes Date Note Type Note Provider Name and Address Organization Details Recorded Time 05/18/2024 text/html This patient has a past medical history significant for Chiari malformation who presents to the office with a complaint of sinus pressure, bilateral otalgia, Dizziness, and nasal congestion. She states that these symptoms have been present for a few months. She denies having been on any antibiotics or steroids for this issue. She does report regular use of Flonase, OTC antihistamine, and Neti pot without relief of symptoms. She has not had any imaging completed. We will obtain a sinus CT. Ashlie Diaz, [facility] [address] [facility], [facility] [address], [place], [address], [place] [facility] 05/18/2024 15:20:46 OBGyn Episode No OBEpisode recorded.
--- OUTSIDE RECORDS SUMMARY | 2024-12-24 08:56 | XMS_ITS | CONTINUITY OF CARE DOCUMENT ---
Author Name see cui Address Unknown Organization [facility] Address [address] [place] [address] Phone [phone] Care Team Providers Care Corrosion Engineer Name Role Phone see cui Unavailable Unavailable INSURANCE PROVIDERS Payer name Policy type / Coverage type [place] red libertarian [employer] Medicaid 1 [id number]
--- OUTSIDE RECORDS SUMMARY | 2024-12-24 08:56 | XMS_ITS | Data Portability ---
Author Organization [facility] Address [address] [place] [address] Assessment No assessment recorded. Plan of Treatment Reminders Order Date Submit Date Provider Last Modified By Organization Details Last Modified Time Details Appointments None recorded. Lab pathology study 2021 022 [facility], [address] [place] [address], [address], [place], [address], 20:08:03 Referral None recorded. Procedures None recorded. Surgeries None recorded. Imaging None recorded. Medication Orders Bicillin L-A 2,400,000 unit/4 mL intramuscu lar syringe 2021 022 [email or web address] Not available 15:11:04 Bicillin L-A 2,400,000 unit/4 mL intramuscu lar syringe 2021 022 [email or web address] [facility], [address] [place], [address], 17:09:47 Bicillin L-A 2,400,000 unit/4 mL intramuscu lar syringe 2021 022 [email or web address] [facility], [address] [place], [address], 15:53:34 Patient TargetsNo targets recorded. Patient Instructions Encounter Date Encounter Id Patient Instructions Last Modified By Organization Details Last Modified Time 10/23/2021 [id number] human papillomavirus (HPV): care instructions Not available 10/23/2021 12:52:51 colposcopy: what to expect at home Not available 10/23/2021 12:52:52 09/10/2022 [id number] eating healthy foods: care instructions Not available 09/10/2022 12:35:40 A healthy lifestyle: care instructions Not available 09/10/2022 11:53:02 Reason for Referral None Reported. Results Created Date Observation Date Name Description Value Unit Range Abnormal Flag Note LastModifiedBy Organization Detail LastModifiedTime 10/01/1910/02/2021 FSH AND LH LH 18.0 mIU/m L Adult Femal e: Folli cular phase 2.4 - 12.6 Ovula tion phase 14.0 - 95.6 Lutea l phase 1.0 - 11.4 Postm enopa usal 7.7 - 58.5 Not Available [facility] ([facility]) [address] [place], [address], 10/02/2021 06:12:12 10/01/1910/02/2021 FSH AND LH FSH 22.8 mIU/m L Adult Femal e: Folli cular phase 3.5 - 12.5 Ovula tion phase 4.7 - 21.5 Lutea l phase 1.7 - 7.7 Postm enopa usal 25.8 - 134.8 Not Available [facility] ([facility]) [address] [place], [address], 10/02/2021 06:12:12 10/01/1910/02/2021 DHEA- SULFA TE DHEA-sulfate 186.0 ug/dL 57.3-2 79.2 Not Available [facility] ([facility]) [address] [place], [address], 10/02/2021 06:12:12 10/01/19 22 10/02/2021 TESTO STERO NE testosterone 22 NG/dL 4-50 Not Available [facility] ([facility]) [address] [place], [address], 10/02/2021 06:12:13 10/01/19 22 10/02/2021 HCG,B ETA SUBUN IT, QNT HCG,beta subunit,qnt, serum <1 mIU/m L Femal e (Non- pregn ant) 0 - 5 (Post menop ausal ) 0 - 8 Femal e (Preg nant) Weeks of Gesta tion 3 6 - 71 4 10 - 750 5 618 - 8538 6 653 - 88263 7 8901 -8292 63 8 54753 -8842 71 9 17171 -6644 10 10 48634 -8278 77 12 51429 -8996 12 14 81881 - 49539 15 23726 - 44552 16 8618 - 17564 17 8143 - 54121 18 8846 - 77371 Sia ECLIA metho dolog y Not Available [facility] ([facility]) [address] [place], [address], 10/02/2021 06:12:13 10/01/1910/02/2021 PROLA CTIN prolactin 17.4 NG/mL 4.8-23 .3 Not Available [facility] ([facility]) [address] [place], [address], 10/02/2021 06:12:13 10/01/19 22 10/02/2021 ESTRA DIOL estradiol 92.5 pg/mL Adult Femal e: Folli cular phase 12.5 - 166.0 Ovula tion phase 85.8 - 498.0 Lutea l phase 43.8 - 211.0 Postm enopa usal <6.0 - 54.7 Pregn can 1st trime ster 215.0 - >4300 .0 Sia ECLIA metho dolog y Not Available [facility] ([facility]) [address] [place], [address], 10/02/2021 06:12:14 10/01/19 22 10/02/2021 TSH RFX ON ABNOR MAL TO FREE T4 TSH 2.850 uIU/m L 0.450- 4.500 Not Available [facility] ([facility]) [address] [facility], [place], [address], 10/02/2021 06:12:14 10/01/19 22 10/02/2021 NUSWA B VAGIN ITIS PLUS (VG+) atopobium vaginae Low - 0 score Not Available [facility] ([facility]) [address] [facility], [place], [address], 10/03/2021 06:12:07 10/01/19 22 10/02/2021 NUSWA B VAGIN ITIS PLUS (VG+) bvab 2 Low - 0 score Not Available [facility] ([facility]) [address] [facility], [place], [address], 10/03/2021 06:12:07 10/01/19 22 10/02/2021 NUA B VAGIN ITIS PLUS (VG+) megasphaera 1 Low - 0 score Calcu late total score by madhav bhakta the 3 indiv idual bacte rial vagin osis (BV) marke r score s toget her. Total score is inter prete d as follo ws: Total score 0-1: Indic ates the absen ce of BV. Total score 2: Indet ermin ate for BV. Addit ional clini jacob data shoul d be evalu ated to estab ro a diagn osis. Total score 3-6: Indic ates the prese nce of BV. This test was devel oped and its perfo rmanc e carlene cteri stics deter mined by [facility]. It has not been clear ed or appro mary kay by the Food and Drug Admin istra tion. Not Available [facility] ([facility]) [address] [facility], [place], [address], 10/03/2021 06:12:07 10/01/19 22 10/02/2021 NUA B VAGIN ITIS PLUS (VG+) edilberto albicans, SENG Negati ve negati ve Not Available [facility] ([facility]) [address] [facility], [place], [address], 10/03/2021 06:12:07 10/01/19 22 10/02/2021 NUSWA B VAGIN ITIS PLUS (VG+) edilberto glabrata, SENG Negati ve negati ve Not Available [facility] ([facility]) [address] [place], [address], 10/03/2021 06:12:07 10/01/19 22 10/03/2021 NUA B VAGIN ITIS PLUS (VG+) trich vag by SENG Negati ve negati ve Not Available [facility] ([facility]) [address] [place], [address], 10/03/2021 06:12:07 10/01/19 22 10/03/2021 NUA B VAGIN ITIS PLUS (VG+) chlamydia trachomatis, SENG Negati ve negati ve Not Available [facility] ([facility]) [address] [place], [address], 10/03/2021 06:12:07 10/01/19 22 10/03/2021 NUA B VAGIN ITIS PLUS (VG+) neisseria gonorrhoeae, SENG Negati ve negati ve Not Available [facility] ([facility]) [address] [place], [address], 10/03/2021 06:12:07 10/01/19 22 10/05/2021 IGP, APTIM A HPV HPV aptima POSITI VE negati ve abnormal This nucle ic acid ampli ficat ion test detec ts fourt een high- risk HPV types (16,1 8,31, 33,35 ,39,4 5,51, 52,56 ,58,5 9,66, 68) witho ut diffe renti ation . Not Available [facility] ([facility]) [address] [place], [address], 10/07/2021 15:13:09 10/01/19 22 10/07/2021 IGP, APTIM A HPV diagnosis: ALLISON T abnormal EPITH ELIAL CELL ABNOR MALIT Y. LOW GRADE SQUAM OUS INTRA EPITH ELIAL LESIO N (LSIL ). Not Available [facility] ([facility]) [address] [facility], [place], [address], 10/07/2021 15:13:09 10/01/19 22 10/07/2021 IGP, APTIM A HPV recommendati on: ALLISON T abnormal Sug[address] st follo w up as clini serena appro priat e. Not Available [facility] ([facility]) [address] [place], [address], 10/07/2021 15:13:09 10/01/19 22 10/07/2021 IGP, APTIM A HPV specimen adequacy: ALLISON T Satis facto ry for evalu ation . Endoc ervic al and/o r squam ous metap lasti c cells (endo cervi jacob compo nent) are prese nt. Not Available [facility] ([facility]) [address] [place], [address], 10/07/2021 15:13:09 10/01/19 22 10/07/2021 IGP, APTIM A HPV clinician provided ICD10: ALLISON Betancourt Z01.4 19 Not Available [facility] ([facility]) [address] [place], [address], 10/07/2021 15:13:09 10/01/19 22 10/07/2021 IGP, APTIM A HPV performed by: ALLISON marie, Cytot echkorina rocha t (ASCP ) Not Available [facility] ([facility]) [address] [place], [address], 10/07/2021 15:13:09 10/01/19 22 10/07/2021 IGP, APTIM A HPV electronical ly signed by: ALLISON sommers MD, Patho logis t Not Available [facility] ([facility]) [address] [facility], [place], [address], 10/07/2021 15:13:09 10/01/19 22 10/07/2021 IGP, APTIM A HPV . . Not Available [facility] ([facility]) [address] [facility], [place], [address], 10/07/2021 15:13:09 10/01/19 22 10/07/2021 IGP, APTIM A HPV pathologist provided ICD10: ALLISON Betancourt R87.6 12 Not Available [facility] ([facility]) [address] [facility], [place], [address], 10/07/2021 15:13:09 10/01/19 22 10/07/2021 IGP, APTIM A HPV note: ALLISON Betancourt The Pap smear is a scree vaughn test desig lex to aid in the detec tion of solo ligna nt and malig nant condi tions of the uteri ne cervi x. It is not a diagn ostic proce dure and shoul d not be used as the sole means of detec ting cervi jacob cance r. Both false -posi tive and false -nega tive repor ts do occur . Not Available [facility] ([facility]) [address] [facility], [place], [address], 10/07/2021 15:13:09 10/01/19 22 10/07/2021 IGP, APTIM A HPV test methodology: ALLISON Betancourt This liqui d based ThinP rep(R ) pap test was scree lex with the use of an image guide cam yo. Not Available [facility] ([facility]) [address] [facility], [place], [address], 10/07/2021 15:13:09 10/01/19 22 10/01/2021 urina lysis , dipst ick Leukocytes Negati ve Not Available In-Office Order Internal Use Only DO Not Attach Compendium DO Not Attach Compendium, Do Not Delete/merge, [id number] 10/01/2021 09:26:20 10/01/19 22 10/01/2021 urina lysis , dipst ick Nitrite negati ve Not Available In-Office Order Internal Use Only DO Not Attach Compendium DO Not Attach Compendium, Do Not Delete/merge, [id number] 10/01/2021 09:26:20 10/01/19 22 10/01/2021 urina lysis , dipst ick Urobilinogen .2 Not Available In-Of fice Order Internal Use Only DO Not Attach Compendium DO Not Attach Compendium, Do Not Delete/merge, 10/01/2021 09:26:20 10/01/19 22 10/01/2021 urina lysis , dipst ick Protein Negati ve Not Available In-Office Order Internal Use Only DO Not Attach Compendium DO Not Attach Compendium, Do Not Delete/merge, 10/01/2021 09:26:20 10/01/19 22 10/01/2021 urina lysis , dipst ick pH 6.0 Not Available In-Office Order Internal Use Only DO Not Attach Compendium DO Not Attach Compendium, Do Not Delete/merge, 10/01/2021 09:26:20 10/01/19 22 10/01/2021 urina lysis , dipst ick Blood Negati ve Not Available In-Office Order Internal Use Only DO Not Attach Compendium DO Not Attach Compendium, Do Not Delete/merge, 10/01/2021 09:26:20 10/01/19 22 10/01/2021 urina lysis , dipst ick Specific Diboll 1.030 Not Available In-Off ice Order Internal Use Only DO Not Attach Compendium DO Not Attach Compendium, Do Not Delete/merge, 10/01/2021 09:26:20 10/01/19 22 10/01/2021 urina lysis , dipst ick Ketone Negati ve Not Available In-Office Order Internal Use Only DO Not Attach Compendium DO Not Attach Compendium, Do Not Delete/merge, 10/01/2021 09:26:20 10/01/19 22 10/01/2021 urina lysis , dipst ick Bilirubin Negati ve Not Available In-Office Order Internal Use Only DO Not Attach Compendium DO Not Attach Compendium, Do Not Delete/merge, [id number] 10/01/2021 09:26:20 10/01/19 22 10/01/2021 urina lysis , dipst ick Glucose Negati ve Not Available In-Office Order Internal Use Only DO Not Attach Compendium DO Not Attach Compendium, Do Not Delete/merge, [id number] 10/01/2021 09:26:20 10/01/19 22 10/01/2021 urina lysis , dipst ick Appearance Clear Not Available In-Offi ce Order Internal Use Only DO Not Attach Compendium DO Not Attach Compendium, Do Not Delete/merge, [id number] 10/01/2021 09:26:20 10/01/19 22 10/01/2021 urina lysis , dipst ick Color Yellow Not Available In-Office Order Internal Use Only DO Not Attach Compendium DO Not Attach Compendium, Do Not Delete/merge, [id number] 10/01/2021 09:26:20 10/01/19 22 10/01/2021 pregn can test, urine HCG negati ve Not Available In-Office Order Internal Use Only DO Not Attach Compendium DO Not Attach Compendium, Do Not Delete/merge, [id number] 10/01/2021 10:03:35 10/09/19 22 10/11/2021 HIV AB/P2 4 AG WITH REFLE X HIV Ab/P24 Ag screen Non Reacti ve non reacti ve HIV Negat tk HIV-1 /HIV- 2 antib odies and HIV-1 p24 antig en were NOT detec jeremy. There is no labor atory evide nce of HIV infec tion. Not Available [facility] ([facility]) [address] [facility], [place], [address], 10/11/2021 08:16:18 10/24/19 22 10/27/2021 PATHO LOGY REPOR T . Commen t Mater ial submi tted: . PART A: cervi x - CERVI JACOB BIOPS Y PART B: endoc ervix - ENDOC ERVIC AL CURET TAGE Not Available [facility] ([facility]) [address] [facility], [place], [address], 10/27/2021 20:08:03 10/24/19 22 10/27/2021 PATHO LOGY REPOR T . Commclifford t Diagn osis: Part A: CERVI JACOB BIOPS Y: MINUT E FRAGM ENTS OF BENIG N ENDOC ERVIC AL GLAND S, SQUAM OUS EPITH ELIUM , SQUAM OUS METAP LASIA , INFLA MMATI ON, AND MUCUS . Part B: ENDOC ERVIC AL CURET TAGE: MINUT E FRAGM ENTS OF BENIG N ENDOC ERVIC AL GLAND S, SQUAM OUS EPITH ELIUM , SQUAM OUS METAP LASIA , INFLA MMATI ON, AND MUCUS . CDE 10/27 Local Not Available [facility] ([facility]) [address] [facility], [place], [address], 10/27/2021 20:08:03 10/24/19 22 10/27/2021 PATHO LOGY REPOR T . Commclifford t Dameon baca d: . Amy marcum MD, Patho logis t Not Available [facility] ([facility]) [address] [facility], [place], [address], 10/27/2021 20:08:03 10/24/19 22 10/27/2021 PATHO LOGY REPOR T . Commclifford t Gross descr iptio n: . 2 Conta iners , forma clarice-f illed , label ed with patie nt ident ifica tion. Part A: CERVI JACOB BIOPS Y: MULTI PLE FRAGM ENT(S ) OF SOFT MATER IAL, BLOOD , AND MUCUS MEASU RING 1.5 X 1.0 X 0.1 CM IN AGGRE GATE. FILTE RED AND SUBMI TTED IN CASSE TTE(S ) A1. Part B: ENDOC ERVIC AL CURET TAGE: MULTI PLE FRAGM ENT(S ) OF SOFT MATER IAL, BLOOD , AND MUCUS MEASU RING 1.5 X 1.3 X 0.1 CM IN AGGRE GATE. FILTE RED AND SUBMI TTED IN CASSE TTE(S ) B1. HAV/H AV 10/24 0835 Local Not Available [facility] ([facility] [address] [place], [address], 10/27/2021 20:08:03 10/24/19 22 10/27/2021 PATHO BRENDEN Calderon [place] CPT . [address]990 1, [address]20 2 Not Available [facility] ([facility] [address] [place], [address], 10/27/2021 20:08:03 03/23/20 22 03/24/2022 RPR, RFX QN RPR/C ONFIR M TP RPR Reacti ve non reacti ve abnormal Not Available [facility] ([facility]) [address] [place], [address], 03/24/2022 19:08:10 03/23/20 22 03/24/2022 RPR, RFX QN RPR/C ONFIR M TP RPR, quant. 1:8 nonrea <1:1 above high normal Not Available [facility] ([facility]) [address] [place], [address], 03/24/2022 19:08:10 03/23/20 22 03/24/2022 RPR, RFX QN RPR/C ONFIR M TP treponema pallidum antibodies Reacti ve non reacti ve abnormal Not Available [facility] ([facility]) [address] [facility], [place], [address], 03/24/2022 19:08:10 05/11/2005/12/2022 HIV AB/P2 4 AG WITH REFLE X HIV Ab/P24 Ag screen Non Reacti ve nonrea ctive HIV Negat tk HIV-1 /HIV- 2 antib odies and HIV-1 p24 antig en were NOT detec jeremy. There is no labor atory evide nce of HIV infec tion. Not Available [facility] ([facility]) [address] [facility], [place], [address], 05/12/2022 07:13:10 09/01/19 23 09/02/2022 RPR, RFX QN RPR/C ONFIR M TP RPR Reacti ve nonrea ctive abnormal Not Available [facility] ([facility] [address] [facility], [place], [address], 09/02/2022 15:10:48 09/01/19 23 09/02/2022 RPR QN+TP ABS RPR, quant. 1:4 nonrea <1:1 above high normal Not Available [facility] ([facility] [address] [facility], [place], [address], 09/02/2022 15:10:48 09/01/19 23 09/02/2022 RPR QN+TP ABS treponema pallidum antibodies Reacti ve nonrea ctive abnormal Not Available [facility] [address] [place], [address], 09/02/2022 15:10:48 01/14/20 23 01/14/2023 RPR, RFX QN RPR/C ONFIR M TP RPR Reacti ve nonrea ctive abnormal Not Available [facility] ([facility] [address] [place], [address], 01/14/2023 15:11:25 01/14/20 23 01/14/2023 RPR QN+TP ABS RPR, quant. 1:4 nonrea <1:1 above high normal Not Available [facility] [address] [facility], [place], [address], 01/14/2023 15:11:26 01/14/20 23 01/14/2023 RPR QN+TP ABS treponema pallidum antibodies Reacti ve nonrea ctive abnormal Not Available [facility] [address] [facility], [place], [address], 01/14/2023 15:11:26 10/03/19 22 10/03/2021 US, pelvi s, trans abdom inal + trans vagin al No observ ation record ed. [facility] [address] [place], [address], 10/07/2021 11:52:01 Result Notes None recorded. 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 Bulmaro valenzuela [place] - [facility] 9 11:43:17 Follicul ar cyst of ovary 9999608 Active 2019 Bulmaro valenzuela [place] [facility] 0 10:33:30 Cervicov aginal cytology : Low grade squamous intraepi thelial lesion 335904859 Active 2021 Pap smear 09/2021: LSIL and HPV positive BROWN MORENO Attn: Yani bhakta,[address] [facility], [place], [address], [place] - [facility] 2 15:28:42 Syphilis 81544090 Active 2021 BROWN MORENO Attn: Yani bhakta,[address] [facility], [place], [address], [place] [facility] 2 08:32:15 Chiari malforma tion 538227543 Active 2021 BROWN MORENO Attn: Kellychey bhakta,[address] [facility], [place], [address], [place] [facility] 2 16:51:55 Amenorrh ea 41892271 Active Bulmaro Grider null, [place] [facility] 6 12:36:05 Genital herpes simplex 84752090 Active Bulmaro Gr[place] [facility] 6 13:37:26 Herpes simplex 14802593 Completed 01/24/2019 Bulmaro [place] [facility] 9 11:43:35 Herpes simplex 33806165 Completed Rhonda Peña [place] null, [place] [facility] 6 13:50:12 Abnormal progeste edyta 453901790 Active Bulmaro Grider [place] [facility] 6 12:36:05 Abnormal progeste edyta 942641212 Completed Rhonda Peña [place], [place] [facility] 6 13:50:13 Vitamin D deficien cy 21312236 Active Bulmaro Gr[place] [facility] 6 12:36:05 Vitamin D deficien cy 79227262 Completed Rhonda Peña [place], [place] [facility] 6 13:50:13 Miscarri age 70086168 Completed 10/01/2016 Bulmaro Gr[place] [facility] 7 10:33:01 Miscarri age 78060155 Completed Rhonda Peña [place], [place] [facility] 6 13:50:13 Anxiety 14148157 Active Bulmaro Grider [place] [facility] 6 13:37:26 Problem Notes None recorded. Procedures Surgical History Date Name Laterality Status Provider Name and Address Organization Details Recorded Time 10/24/19 22 Colposcopy completed BROWN ESPINOZA Attn: Accounting,[address] [facility] [place], [address], [place] [facility] 10/23/2021 13:09:47 01/25/20 19 Date of Last Pap Smear completed Bulmaro Grider [facility] 10/04/2019 22:23:24 12/11/19 17 IUD Removal completed Bulmaro Grider [place] [facility] 12/10/2016 16:01:02 11/28/19 16 IUD Insertion completed Bulmaro Grider [place] 11/28/2015 18:53:21 08/23/19 03 Oophorectomy completed Alana SHAMA Hard[place] [facility] 10/17/2015 15:32:07 Imaging Results Imaging Date Name Status LastModified by Organization Details LastModified Time 10/03/2021 US, pelvis, transabdominal + transvaginal completed [facility] [address] [place], [address], 10/07/2021 11:52:01 Procedure Notes None recorded. Medical Equipment None Reported. Allergies No known drug allergies Medications Name Sig Start Date Stop Date Status Note LastModified by Organization Details LastModified Time multivitam in tablet Take 1 tablet every day by oral route. 2018 active Not Available Not Available Not Avai lable Prometrium 200 mg capsule Take 1 capsule twice a day by oral route. 10/01 completed Not Available Not Available Not Available amoxicilli n 500 mg capsule 07/31 completed Not Available Not Available Not Available medroxypro gesterone 10 mg tablet TAKE 1 TABLET BY MOUTH ONCE DAILY DIRECTED FOR 10 DAYS 10/30 completed did not start Not Available Not Available Not Available methocarba mol 500 mg tablet 07/31 completed Not Available Not Available Not Available Aviane 0.1 mg-20 mcg tablet 10/01 completed Not Available Not Available Not Available doxycyclin e hyclate 100 mg capsule 07/31 completed Not Available Not Available Not Available ketoconazo le 2 % shampoo APPLY TO WET HAIR, LEAVE ON FOR 3 MINUTES, THEN RINSE 2-3 TIMES WEEKLY active Not Available Not Available No t Available Tab-A-Reece tablet 10/05 completed Not Available Not Available Not Available azithromyc in 250 mg tablet TAKE 2 TABLETS (500 MG) BY ORAL ROUTE ONCE DAILY FOR 1 DAY THEN 1 TABLET (250 MG) BY ORAL ROUTE ONCE DAILY FOR 4 DAYS 10/05 completed Not Available Not Available Not Available ibuprofen 800 mg tablet TAKE 1 TABLET BY MOUTH THREE TIMES DAILY NEEDED FOR CRAMPS 01/24 completed Not Available Not Available Not Available fluconazol e 150 mg tablet TAKE 1 TABLET BY MOUTH EVERY 72 HOURS DIRECTED FOR 6 DAYS active Not Available Not Available No t Available valacyclov ir 1 gram tablet TAKE 1 TABLET BY MOUTH DAILY FOR HSV SUPPRESSI ON. 01/24 completed Not Available Not Available Not Available ondansetro n HCl 8 mg tablet TAKE 1 TABLET BY MOUTH EVERY 8 HOURS NEEDED FOR NAUSEA active Not Available Not Available No t Available phenazopyr idine 200 mg tablet 10/01 completed Not Available Not Available Not Available metronidaz ole 0.75 % (37.5 mg/5 gram) vaginal gel Insert 1 applicato rful every day by vaginal route at bedtime for 5 days. active Not Available Not Available No t Available sumatripta n 50 mg tablet TAKE 1 TABLET BY MOUTH ONCE NEEDED FOR MIGRAINE . MAY REPEAT DOSE IN 2 HOURS IF HEADACHE RECURS DIRECTED active Not Available Not Available No t Available topiramate 25 mg tablet TAKE 1 TABLET BY MOUTH TWICE DAILY active Not Available Not Available No t Available metronidaz ole 500 mg tablet TAKE 1 TABLET BY MOUTH TWICE DAILY DIRECTED FOR 7 DAYS (AVOID ALCOHOL WHILE TAKING) active Not Available Not Available No t Available acetaminop hen 300 mg-codeine 30 mg tablet 07/31 completed Not Available Not Available Not Available sulfametho xazole 800 mg-trimeth oprim 160 mg tablet 10/01 completed Not Available Not Available Not Available acyclovir 800 mg tablet Take 1 tablet every day by oral route. 01/24 completed Not Available Not Available Not Available ondansetro n 8 mg disintegra ting tablet 07/31 completed Not Available Not Available Not Available Vitamin tablet Take 1 tablet every day by oral route as directed. 07/31 completed Not Available Not Available Not Available nortriptyl ine 25 mg capsule 07/31 completed Not Available Not Available Not Available Zofran 4 mg tablet Take 2 tablets twice a day by oral route. active PRN Not Available Not Available No t Available alprazolam 0.25 mg tablet 01/24 completed Not Available Not Available Not Available famotidine 20 mg tablet 07/31 completed Not Available Not Available Not Available hyoscyamin e sulfate 0.125 mg tablet 07/31 completed Not Available Not Available Not Available nortriptyl ine 10 mg capsule 10/05 completed Not Available Not Available Not Available acyclovir 5 % topical ointment APPLY OINMENT TO AFFECTED AREA THREE TIMES DAILY NEEDED 01/24 completed Not Available Not Available Not Available naproxen 500 mg tablet,del ayed release 07/31 completed Not Available Not Available Not Available promethazi ne 25 mg tablet 10/01 completed Not Available Not Available Not Available Bicillin L-A 2,400,000 unit/4 mL intramuscu lar syringe Inject 2.4 million units every day by intramusc ular route as directed. 2021 active Not Available Not Available Not Avai lable azelastine 137 mcg (0.1 %) nasal spray USE 1 SPRAY(S) IN EACH NOSTRIL EVERY 12 HOURS active Not Available Not Available No t Available methylpred nisolone 4 mg tablets in a dose pack TAKE BY MOUTH DIRECTED ON INSIDE OF PACKAGE active Not Available Not Available No t Available albuterol sulfate HFA 90 mcg/actuat ion aerosol inhaler 07/31 completed Not Available Not Available Not Available norethindr one (contracep tive) 0.35 mg tablet Take 1 tablet every day by oral route. 07/31 completed Not Available Not Available Not Available clobetasol 0.05 % scalp solution 07/31 completed Not Available Not Available Not Available SF 5000 Plus 1.1 % dental cream 01/24 completed Not Available Not Available Not Available fluticason e propionate 50 mcg/actuat ion nasal spray,susp ension USE 1 TO 2 SPRAY(S) IN EACH NOSTRIL TWICE DAILY active Not Available Not Available No t Available ParaGard T 380A 380 square mm intrauteri ne device Take 1 device by intrauter ine route. 01/24 completed Not Available Not Available Not Available loratadine 10 mg tablet 07/31 completed Not Available Not Available Not Available diazepam 5 mg tablet TAKE 1/2 (ONE-HALF ) TO 1 (ONE) TABLET BY MOUTH ONCE DAILY NEEDED. PATIENT NEEDS TO CALL OFFICE FOR APPOINTME NT. active Not Available Not Available No t Available nitrofuran toin monohydrat e/macrocry stals 100 mg capsule Take 1 capsule every 12 hours by oral route as directed for 5 days. 10/01 completed Not Available Not Available Not Available Valium prn 10/05 completed Not Available Not Available Not Available cholecalci ferol (vitamin D3) 1,250 mcg (50,000 unit) capsule 10/01 completed Not Available Not Available Not Available Calcium with Vitamin D 600 mg-10 mcg (400 unit) tablet Take 1 tablet twice a day by oral route. 10/05 completed Not Available Not Available Not Available 28 mg iron-800 mcg tablet Take 1 tablet by oral route. 07/31 completed Not Available Not Available Not Available calcium 600 mg (as carbonate) -vitamin D3 20 mcg (800 unit) tablet Take 1 tablet twice a day by oral route. 01/24 completed Not Available Not Available Not Available Classic 28 mg iron-800 mcg tablet TAKE ONE TABLET BY MOUTH ONCE DAILY DIRECTED 01/24 completed Not Available Not Available Not Available Slynd 4 mg (28) tablet TAKE 1 TABLET BY MOUTH ONCE DAILY active Not Available Not Available No t Available ID NOW COVID-19 Test Kit TEST DIRECTED TODAY active Not Available Not Available No t Available COVID-19 test specimen collection TEST DIRECTED 07/31 completed Not Available Not Available Not Available Vitals Date Recorded Body height Body mass index (BMI) Body weight Systolic blood pressure Diastolic blood pressure Provider Name and Address Organization Details Last Updated DateTime 10/23/2021 170.18 cm 17.4 kg/m2 77506.75 g 98 mm[Hg] 60 mm[Hg] SHAMA Valencia - [facility] 2 12:35:33 Date Recorded Body height Body mass index (BMI) Body weight Heart rate Body temperature Oxygen saturation Oxygen saturation in Arterial blood by Pulse oximetry Systolic blood pressure Diastolic blood pressure Provider Name and Address Organization Details Last Updated DateTime 2 170.18 cm 17.9 kg/m2 34281.5 3 g 85 /min 98.2 [degF] 99 % 99 % 102 mm[Hg] 68 mm[Hg] Rhonda Andres [place] - [facility] 2 14:32:49 Date Recorded Body height Body mass index (BMI) Body weight Heart rate Oxygen saturation Oxygen saturation in Arterial blood by Pulse oximetry Systolic blood pressure Diastolic blood pressure Provider Name and Address Organization Details Last Updated DateTime 3 170.18 cm 17.9 kg/m2 46461.5 3 g 73 /min 99 % 99 % 110 mm[Hg] 70 mm[Hg] Haven Roth MA [place] - [facility] 3 11:27:02 Social History Question Answer Notes LastModified by Organizat ion Details LastModified Time Tobacco Smoking Status Never Smoker Anne Marie Joel MA null, [place] - [facility] 08/21/2014 15:03:29 Do You Have An Advance Directive? No Information not available 10/17/2015 What Is Your Level Of Alcohol Consumption? None Information not available 10/17/2015 If You Are , What Was Your Level Of Alcohol Consumption Prior To ? Occasional Information not available 10/17/2015 How Many Years Have You Consumed Alcohol? 14 Information not available 10/17/2015 Is Anesthesia Consult Planned? No Information not available 10/17/2015 Plan No Information no t available 10/17/2015 Is Blood Transfusion Acceptable In An Emergency? Yes Information not available 10/17/2015 What Is Your Level Of Caffeine Consumption? Moderate Information not available 10/17/2015 Live With Cats/exposure To Cat Litter Yes Information not available 10/17/2015 How Much Tobacco Do You Chew? None Information not available 10/17/2015 Are You Currently Employed? Yes Information not available 10/17/2015 What Type Of Diet Are You Following? REGULAR Information not available 10/17/2015 Which Illicit Or Recreational Drugs Have You Used? 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 No Information no t available 10/17/2015 Frequent Air Travel No Information not available 10/17/2015 Illicit Drugs Pre- None Information not available 10/17/2015 Live Alone Or With Others? With Others Information not available 10/17/2015 Marital Status Single Informatio n not available 10/17/2015 What Was The Date Of Your Most Recent Tobacco Screening? 09/10/2022 [email or web address] Information not available 09/10/2022 How Many Children Do You Have? 1 Information not available 10/17/2015 Are There Any Occupational Health Risks Where You Work? None Information not available 10/17/2015 Performs Monthly Self-breast Exam? Yes Information no t available 12/15/2019 What Is Your Relationship Status? Single Information not available 12/15/2019 Seat Belts Used Routinely Yes Information not available 10/17/2015 Are You Sexually Active? Yes Information not available 10/17/2015 Do You Have Smoke And Carbon Monoxide Detectors In Your Home? Yes Information not available 10/17/2015 Are You Passively Exposed To Smoke? No Information no t available 10/17/2015 How Much Tobacco Do You Smoke? No [email or web address] Information not available 02/05/2016 Smoking Pre- No Information not available 10/17/2015 General Stress Level High Information not available 10/17/2015 Do You Use Sunscreen Routinely? No Information not available 10/17/2015 Supplements Vitamin Information not available 10/17/2015 How Many Years Have You Smoked Tobacco? 0 [email or web address] Information not available 02/05/2016 Sex: Unknown Functional Status Question Answer Note LastModified by Organization D etails LastModified Time What is your exercise level? Moderate Information not available 10/17/2015 Mental Status None recorded. Family History Nothing Reported. Medical History Condition Response Heart Problems N Other N High Blood Pressure N Breast Cancer N Thyroid Problems N Kidney or Bladder Problems N GI Problems N Lung Disease N Depression N Blood Clots N Acne N Breast Problem N Eating Disorder N Anemia N Anesthesia Complications N Headaches/Migraines N Anxiety Disorder Y Diabetes N Ovarian Cancer N Muscle, Joint, or Bone Problems N Blood Transfusions N Arthritis N Seizures/Epilepsy N Polyps N Infertility N Acid Reflux (GERD) N Cancer N Stroke N Abuse/Domestic Violence N Asthma N Endometriosis N High Cholesterol N Hepatitis N Liver Disease N Heart Disease N Fibromyalgia N Pre-Eclampsia N Hypertension N Osteoporosis N Kidney Disease N Gynecological History Statement/Question Response Abnormal Pap N Flow Heavy Date of LMP 08/26/2022 On BCP's at Conception? N STIs/STDs N HPV Vaccine N Duration of Flow (days) 3 Age at Menarche 15 Current Control Method None Age at First Child 20 Frequency of Cycle (Q days) 14 Sexually Active? Y Menses Monthly Y Date of Last Pap Smear 01/24/2019 Sexual Problems? N LMP Definite Desired Control Method BCPs Obstetrics History GPAL:G 3 P 1 0 2 1 Type Value Multiple Births 0 Full Term 1 Induced 1 Spontaneous 1 Premature 0 Living 1 Ectopics 0 Total 3 Immunizations Vaccine Type Date Status Note Provider Nam e and Address Organization Details Recorded Time COVID-19, mRNA, LNP-S, PF, 30 mcg/0.3 mL dose 05/17/2021 completed Rhonda Andres [place] null, [place] - [facility] 10/01/2021 09:14:37 COVID-19, mRNA, LNP-S, PF, 30 mcg/0.3 mL dose 07/05/2021 completed Rhonda [place], [place] [facility] 10/01/2021 09:14:48 HPV9 10/05/2019 completed Rhonda Peña [place] [facility] 10/05/2019 11:19:49 HPV9 12/15/2019 completed Rhonda Peña [place] [facility] 12/15/2019 15:48:22 HPV9 04/26/2020 completed Kiersten Toure [place] [facility] 04/26/2020 10:42:10 Past Encounters Encounter ID Performer Location Encounter Start Date Encounter Closed Date Diagnosis/Indication Diagnosis SNOMED-CT Code Diagnosis ICD10 Code Diagnosis Note [id number] MD Nataliia Mcintyre (BUSINESS AND FINANCIAL COUNSEL) [address] [place] [address] [id number] 0 08/21/2014 14:29:32 08/22/2014 11:58:08 Venereal disease screening [id number] MD Nataliia Mcintyre (BUSINESS AND FINANCIAL COUNSEL) [address] [place] [address] [id number] 0 10/17/2015 14:53:00 10/17/2015 17:15:44 Advanced maternal age 862115737 O09.891 Routine an tenatal care 055813610 Z34.91 Herpes simplex 61722956 B00.9 Abnormal progesterone 13 1463450 R94.7 in [id number] MD Nataliia Mcintyre (BUSINESS AND FINANCIAL COUNSEL) [address] [place] [address] [id number] 0 11/07/2015 11:16:31 11/07/2015 14:25:28 Miscarriage 56850305 O03.9 Family teresa nning surveillance 574843507 Z30.09 [id number] [facility] ([facility]INESS AND FINANCIAL COUNSEL) [address] [place] [address] [id number] 0 11/28/2015 15:44:05 11/28/2015 17:53:17 Family planning surveillance 901874552 Z30.09 Insertion of intrauterine contraceptive device 82272156 Z30.430 [id number] MD Nataliia Mcintyre (BUSINESS AND FINANCIAL COUNSEL) [address] [place] [address] [id number] 0 02/05/2016 11:20:00 02/06/2016 13:37:56 Family planning surveillance 501223286 Z30.09 Genital he rpes simplex 99875015 A60.9 currently taking acyclovir Anxiety 01255775 F41.9 seeing counselor tomorrow downstairs . [id number] MD Naatliia Mcintyre (BUSINESS AND FINANCIAL COUNSEL) [address] [place] [address] [id number] 0 09/30/2016 10:46:52 09/30/2016 15:10:37 Contraception care management 118269802 Z30.9 Family teresa nning surveillance 459092770 Z30.09 Anxiety 65487223 F41.9 seeing counselor tomorrow downstairs . Genital he rpes simplex 44707462 A60.9 currently taking acyclovir [id number] MD Nataliia Mcintyre (BUSINESS AND FINANCIAL COUNSEL) [address] [place] [address] [id number] 0 12/10/2016 14:32:53 12/11/2016 14:04:21 Pain in pelvis 32833920 R10.2 Removal of intrauterine device 36316587 Z30.432 Exposure t o sexually transmissible disorder 624224592 Z20.2 [id number] MD Nataliia Mcintyre (BUSINESS AND FINANCIAL COUNSEL) [address] [place] [address] [id number] 0 03/10/2017 10:29:08 03/10/2017 14:57:22 Genital herpes simplex 50421805 A60.9 currently taking acyclovir Anxiety 21534739 F41.9 seeing counselor tomorrow downstairs . Family teresa nning surveillance 087182834 Z30.09 [id number] MD Nataliia Mcintyre (BUSINESS AND FINANCIAL COUNSEL) [address] [place] [address] [id number] 0 01/24/2019 10:13:38 01/24/2019 16:58:35 Gynecologic examination 87321439 Z01.419 Exposure t o sexually transmissible disorder 068530417 Z20.2 Family teresa nning surveillance 052025981 Z30.09 Bacterial vaginosis [address] reptococcus carrier 1687585044 103 Z22.330 Anxiety 94911930 F41.9 seeing counselor tomorrow downstairs . Genital he rpes simplex 55670093 A60.9 currently taking acyclovir [id number] MD Nataliia Mcintyre (BUSINESS AND FINANCIAL COUNSEL) [address] [place] [address] [id number] 0 10/05/2019 09:41:59 10/09/2019 10:22:50 Family planning surveillance 131574977 Z30.09 Switch to Slynd. Follicular cyst of ovary 9897758 N83.01 Switch to Slynd Administra tion of viral vaccine 15076983 Z23 [id number] MD Nataliia Mcintyre (BUSINESS AND FINANCIAL COUNSEL) [address] [place] [address] [id number] 0 12/15/2019 15:11:43 12/15/2019 15:52:43 Active or passive immunization 041680750 Z23 [id number] MD Nataliia Mcintyre (BUSINESS AND FINANCIAL COUNSEL) [address] [place] [address] [id number] 0 04/26/2020 10:21:06 04/30/2020 09:12:58 Active or passive immunization 626565965 Z23 [id number] BROWN MORENO (Adult Med) [address] [place] [address] [id number] 0 07/31/2021 08:28:08 08/01/2021 12:52:57 Urinary tract infectious disease 79273015 N39.0 History of recurrent UTIs presents today for concerns for UTIComplai vaughn of dysuria and mild pelvic pain x 1 week. She has not tried anything at home. States her symptoms are very similar to prior UTI symptoms.S he is not concerned for vaginal infection, denies vaginal discharge. Urine dipstick showed no evidence of infection- will send for urine culture- due to symptoms patient is having and since similar to prior UTI symptoms, will send antibiotic to cover for UTI. If culture comes back negative, will stop abx. [id number] BROWN MORENO (Adult Med) [address] [place] [address] [id number] 0 10/01/2021 08:57:52 10/02/2021 12:39:28 Gynecologic examination 37934326 Z01.419 Here today for WWE, complainin g of pelvic pain and secondary amenorrhea x 4-5 monthsRece ntly treated for UTI 1-2 months ago, medication did not help pelvic painLast pap smear was normal in 2019She has had a cervical biopsy in the past and had left oophorecto my and salpingect cristopher back in 2002.On PE: moderate amount of thick white vaginal discharge noted in cervical canal, left parametria l tenderness on bimanual exam- pap smear completed- nuswab completed- start anti-funga l to cover for yeast infection Pain in pelvis 24760006 R10.2 Pelvic pain started late 06/2021 and was intermitte nt at that time, now seems to be slightly more painful and it is constant. She is not sexually active currently, from her significan t other 5-6 months ago. She has not had a menstrual cycle since 05/2021.Hx of ovarian cysts in the pastHx of cervical biopsy in the past and had left oophorecto my and salpingect cristopher back in 2002.Beverly coley treated for UTI due to symptoms, culture came back negative, pelvic pain did not improve after taking antibiotic s- urine dipstick normal- nuswab completed today, treatment sent for yeast infection due to PE findings- pelvic US ordered due to constant pelvic pain, amenorrhea , and left parametria l tenderness on exam Secondary amenorrhea 156 443382 N91.1 She is not sexually active currently, from her significan t other 5-6 months ago, denies chance of being Sh e has not had a menstrual cycle since 05/2021, she was on Slynd control pills and was having menstrual cycles regularly prior. She took the pills 06/2021 but did not have a cycle that month as expected, she then was unable to get Slynd refilled and has been without control pills since then.Admit s to losing weight (dropping below 100 pounds) around 1 year ago when she had COVID but was still having her cycles at that time, she has gained around 10 pounds back since then.Hx of cervical biopsy in the past and had left oophorecto my and salpingect cristopher back in 2002.- will check labs for potential causes of amenorrhea - urine test in the office negative- pelvic US ordered Screening mammography 24 545389 Z12.31 No prior mammogram yet, mammogram recently ordered by her PCPDenies breast symptoms and family history of breast cancerDecl ined CBE today [id number] BROWN ESPINOZA (BUSINESS AND FINANCIAL COUNSEL) [address] [place] [address] [id number] 0 10/23/2021 12:15:00 10/24/2021 08:37:48 Low grade squamous intraepithelial lesion on cervical Papanicolaou smear 2109739752 9105 R87.612 Pap 10/01/21 with LSIL and HPV. Detailed discussion regarding cervical cancer screening, HPV, and cervical dysplasia. Colposcopy with biopsies and ECC completed today as detailed in the procedure note. Will follow up on results. Human blas lloma virus infection 214090027 B97.7 Safe sex practices discussed. 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 Denies history of chancre and disseminat ed rashAdmits to fatigue and headaches x 6 months- will treat as late latent syphilis, needs 3 injections of PCN once weekly x 3 weeks- repeat test in 6 months, 12 months and 24 months [id number] BROWN MORENO (Adult Med) [address] [place] [address] [id number] 0 04/01/2022 14:27:59 04/02/2022 11:45:08 Late latent syphilis 841712739 A52.8 + RPR with confirmato ry testing, 1:8No prior history of syphilis, prior RPR testing in 2013 and 2015 were negativeDe nies known exposure over the last year. Denies history of chancre and disseminat ed rashAdmits to fatigue and headaches x 6 months- will treat as late latent syphilis, needs 3 injections of PCN once weekly x 3 weeks- 2nd injection today- repeat test in 6 months, 12 months and 24 months [id number] BROWN MORENO (Adult Med) [address] [place] [address] [id number] 0 04/08/2022 14:24:27 04/09/2022 11:55:27 Late latent syphilis 152968907 A52.8 + RPR with confirmato ry testing, 1:8No prior history of syphilis, prior RPR testing in 2013 and 2015 were negativeDe nies known exposure over the last year. Denies history of chancre and disseminat ed rashAdmits to fatigue and headaches x 6 monthsFoll owing with Neurology for years due to history of chiari malformati on. She has been having worsening fatigue, headaches and brain fog over the last 6 months for which they are now completing further work-up on these symptoms.D enies fever, chills, stiff neck, ocular symptoms, nausea/vom iting, muscle paresis, AMS, and ataxia.- 3rd injection completed today to cover for lat latent syphilis- unsure if titer represents new infection (despite no sexual intercours e x 1 year) vs old infection with improvemen t in Ab due to own immune defense- plan is to discuss further with neurology to ensure worsening symptoms are not concerning for neurosyphi lis- f/u in 6 months for repeat testing [id number] BROWN MORENO (Adult Med) [address] [place] [address] 09/10/2022 11:13:38 09/15/2022 10:07:40 Underweight 435413492 R63.6 BMI 17.9, stable and increased since her last few visits with us- keep up good work- will continue to monitor Late latent syphilis 186 057453 A52.8 03/23/2022: + RPR with confirmato ry testing, 1:8. Received 3 PCN injections for tx.No prior history of syphilis, prior RPR testing in 2013 and 2015 were negativeDe nies known exposure over the last year. Denies history of chancre and disseminat ed rashAdmits to fatigue and headaches x 6 monthsRepe at test at 6 months 09/01/2022: + RPR, 1:4 She has been following with Neurology for years due to history of chiari malformati on. She has been having worsening fatigue, nausea, stiff neck, tinnitus, headaches and brain fog over the last 6 months for which they are now completing further work-up on these symptoms. Recently completed imaging of brain and spinal cord which multiple CSF leaks, has an upcoming appointmen t with Neurology at [facility] to discuss her medical conditions and treatment options. - Discussed results: RPR came back positive still as expected, titer decreased from 1:8 to 1:4 which is good. A decrease of titer by 4 fold is considered adequate response to treatment. 1:8 to 1:4 is not quite a decrease by 4 fold which does fall under inadequate response possibly? Per UptoDate, Since her titer was low to start with 1:8 compared to titers like 1:32 or 1:64, a 4 fold decrease at 6 months may not be likely. Rec. assessing patient for neuro symptoms and no repeat infection vs observatio n and recheck her level again at 1 year. Due to her already current neuro symptoms, her situation is not straightfo rward.- plan to hold off on re-treatme nt for now, keep upcoming appointmen t with Neuro at [facility], will make sure they have all these results, and they can decide on tx plan with her multiple neuro conditions Health Concerns Section Related Observation LastModified by Organization Detai ls LastModified Time None Recorded Concern Status LastModified by Organization Details LastModified Time None Recorded Advance Directives Directive N: Payers Encounter Date Sequence Insurance Name Policy Number Policy Vasquez Covered Member ID Vasquez Member ID Guarantor Name 10/23/2021 1 [facility] 02/20/21 (MEDICAID REPLACEMENT - HMO) Savannah Darnell [id number] Savannah Quinteross 03/25/2022 1 [facility] - DOS ON OR AFTER 21 (MEDICAID REPLACEMENT - HMO) Savannah Quinteross [id number] Crystal Darnell 04/01/2022 1 [facility] - DOS ON OR AFTER 21 (MEDICAID REPLACEMENT - HMO) Savannah Quinteross [id number] Savannah Quinteross 04/08/2022 1 [facility] AFTER 02/20/21 (MEDICAID REPLACEMENT - HMO) Savannah Quinteross [id number] Crystal Darnell 09/10/2022 1 [facility] - DOS ON OR AFTER 21 (MEDICAID REPLACEMENT - HMO) Savannah Darnell [id number] Savannah Darnell Notes Date Note Type Note Provider Name and Address Organization Details Recorded Time 10/23/2021 text/html 41 yo femal e presenting for colposcopy and biopsy following abnormal Pap. She was referred by PCP Daja Jhaveri. Pap showing LSIL and HPV infection. She has never had an abnormal Pap before. Denies abnormal bleeding, discharge, fevers, chills, n/v. BROWN ESPINOZA Attn: Accounting,[address] [facility], [place], [address], [place] - [facility] 10/23/2021 13:22:58 04/08/2022 text/html 42 year old fema natty with recent history of positive RPR testing returns today for final PCN injection. Recently tested positive for syphilis, no intercourse since 04/2021 and prior intercourse was with her long-term partner x 4 years. She is worried about how long she has had the infection. She does not remember history of chancre or full body rash. She has been following with Neurology for years due to history of chiari malformation. She has been having worsening fatigue, headaches and brain fog over the last 6 months for which they are now completing further work-up on these symptoms. Denies fever, chills, stiff neck, ocular symptoms, nausea/vomiting, muscle paresis, AMS, and ataxia. BROWN MORENO Attn: Accounting[address] [facility], [place], [address], [facility] [place] 04/08/2022 16:53:57 09/10/2022 text/html 42 year old amarjit luz with recent history of positive RPR testing returns today to discuss repeat test results. Recently tested positive for syphilis, no intercourse since 04/2021 and prior intercourse was with her long-term partner x 4 years. She is worried about how long she has had the infection. She does not remember history of chancre or full body rash. She has been following with Neurology for years due to history of chiari malformation. She has been having worsening fatigue, nausea, stiff neck, tinnitus, headaches and brain fog over the last 6 months for which they are now completing further work-up on these symptoms. Recently completed imaging of brain and spinal cord which multiple CSF leaks, has an upcoming appointment with Neurology at [facility] to discuss her medical conditions and treatment options.Denies fever, chills, stiff neck, ocular symptoms, nausea/vomiting, muscle paresis, AMS, and ataxia. BROWN MORENO Attn: Accounting[address] [facility], [place], [address], [facility] [place] 09/10/2022 16:07:57 OBGyn Episode Ob Episode Information Episode Created Date Number of Fetuses Patient Bloodtype Patient rh Status Prepregnancy Weight lbs Domestic Partner Domestic Partner Phone Father Name Service Operations Manager Status 10/17/19 16 1 CLOSED Fetus Data First Name Last Name Admitted to NICU Weight (g) Sex Living Outcome Pediatric Complications Fetus ID Race Codes Race Delivery Type 2438.05 7 F Full Term [id number] Repeat Magno Calculation Initial Magno Date Initial Exam Date Initial Exam Provider Initial Ultrasound Date Last Menstrual Period Date Ultra Sound Weeks Gestation 0 Eighteen To Twenty Week Magno Update Ultra Sound Date Fundal Height At Umbil Quickening Date Ultra Sound Latest Weeks Gestation Final Magno Confirmed By Final Magno Confirmed Date Final Magno Date Ultra Sound Latest Days Gestation 0 0 Menstrual History Last Menstrual Date Menses Monthly On Bcp Conception Prior Menses Frequency Hcg Plus Date Menarche Onset Age Delivery Information Delivery Date Delivery Type Labor Anesthesia Weeks Gestation Incision Type Labor Labor Length Hrs Delivered By Post Complications Tubal Sterilization Discharge Date Comments 0 None 40 false Lennie Discharge Information Feeding Method Contraceptive Method Maternal HG B and HCT Levels Ob Episode Information Episode Created Date Number of Fetuses Patient Bloodtype Patient rh Status Prepregnancy Weight lbs Domestic Partner Domestic Partner Phone Father Name Service Operations Manager Status 10/17/19 16 1 O Positive CLOSED Fetus Data First Name Last Name Admitted to NICU Weight (g) Sex Living Outcome Pediatric Complications Fetus ID Race Codes Race Delivery Type [id number] Problems Problem Notes Problem Name Start Date End Date Resolution Snomed Code Not e Vitamin D deficiency 34135738 Herpes simplex [id number] Abnormal progesterone 90391211 0 Miscarriage 91663373 Magno Calculation Initial Magno Date Initial Exam Date Initial Exam Provider Initial Ultrasound Date Last Menstrual Period Date Ultra Sound Weeks Gestation 06/05/2016 10/17/2015 [email or web address] 08/30/2015 0 Eighteen To Twenty Week Magno Update Ultra Sound Date Fundal Height At Umbil Quickening Date Ultra Sound Latest Weeks Gestation Final Magno Confirmed By Final Magno Confirmed Date Final Magno Date Ultra Sound Latest Days Gestation 0 06/05/20 16 0 Pre- Flowsheet Flowsheet Date 10/17/2015 Rutherford Score Blood Edema Fundus Height Fundus Units Glucose Ketones Leukocytes Nitrite Labor Signs Protein Cervic Dilation Cervic Effacement Cervic Station Type Weight in lbs Pre/Post Dialysis Refused 115.201122809648 BP Diastolic BP Location Tested BP Systolic BP Type 54 106 sitting Fetus Heart Rate Present Fetus Movement Comments Flowsheet Date 11/07/2015 Rutherford Score Blood Edema Fundus Height Fundus Units Glucose Ketones Leukocytes Nitrite Labor Signs Protein Cervic Dilation Cervic Effacement Cervic Station Type Weight in lbs Pre/Post Dialysis Refused 112.696469830845 BP Diastolic BP Location Tested BP Systolic BP Type 58 100 sitting Fetus Heart Rate Present Fetus Movement Comments Flowsheet Date 11/28/2015 Rutherford Score Blood Edema Fundus Height Fundus Units Glucose Ketones Leukocytes Nitrite Labor Signs Protein Cervic Dilation Cervic Effacement Cervic Station Type Weight in lbs Pre/Post Dialysis Refused 111.510887956402 BP Diastolic BP Location Tested BP Systolic BP Type 60 100 Fetus Heart Rate Present Fetus Movement Comments Menstrual History Last Menstrual Date Menses Monthly On Bcp Conception Prior Menses Frequency Hcg Plus Date Menarche Onset Age 0108/30/2015 true false 28 Genetic Screening And Infection History Question Response Note Patient's Age Will Be 35 Years Or Older At Estim ated Date of Delivery true Thalassemia (Libyan, Emirati, Mediterranean, Or Background): MCV < 80 false Neural Tube Defect (Meningomyelocele, Spina Bifi da, Or Anencephaly) false Congenital Heart Defect false Down Syndrome false Deacon-Sachs (eg, Baptist, Cajun, Argentine-Micronesian) f alse Jonny Disease false Sickle Cell Disease Or Trait () false Hemophilia Or Other Blood Disorders false Muscular Dystrophy false Cystic Fibrosis false Warrington's Chorea false Mental Retardation/Autism false If Yes, Was Person Tested For Fragile X? false Other Inherited Genetic Or Chromosomal Disorder false Maternal Metabolic Disorder (eg, Type 1 Diabetes , PKU) false Patient Or Baby's Father Had A Child With Defects Not Listed Above false Recurrent Loss, Or A Stillbirth false Medications (including Suppl ements, Vitamins, Herbs, OTC Drugs), Illicit/Recreational Drugs, Alcohol false If Yes, Agent(s) And Strength/Dosage false Any Other Genetic History false Live With Someone With TB Or Exposed To TB false Patient Or Partner Has History Of Genital Herpes false Rash Or Viral Illness Since Last Menstrual Perio d false History Of STD, Gonorrhea, Chlamydia, HPV, Syphi lis false Other Infection History false Delivery Information Delivery Date Delivery Type Labor Anesthesia Weeks Gestation Incision Type Labor Labor Length Hrs Delivered By Post Complications Tubal Sterilization Discharge Date Comments Discharge Information Feeding Method Contraceptive Method Maternal HG B and HCT Levels
--- OUTSIDE RECORDS SUMMARY | 2024-12-24 08:56 | XMS_ITS | Encounter Summary ---
Author Organization [facility] Address [address] [place] [address] Care Team Providers Care Associate Merchandise Planner Name Role Phone Hiren Brand DO Primary Care Provider [phone] Reason for Visit * Reason Comments Refill Request Encounter Details Date Type Department Care Team (Late st Contact Info) Description 03/23/2024 Refill [facility] - Ophthalmology [address] [place] [phone] Deyanira Lewis MD [address] [place] [address] [place] [address] Refill Request Social History Tobacco Use Types Packs/Day Years Used Date Smoking Tobacco: Never Smokeless Tobacco: Never Comments Unknown Sex and Gender Information Value Date Recorded Sex Assigned at Not on file 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 Gender Identity Not on file Sexual Orientation Not on file documented as of this encounter Plan of Treatment Upcoming Encounters Date Type Department Care Team (Late st Contact Info) Description 03/14/2025 3:50 PM CDT Office Visit [facility] - Dermatology [address] [place] [phone] Deyanira Lewis MD [address] [place] [address] [place] [phone] documented as of this encounter Visit Diagnoses Diagnosis Seborrheic dermatitis documented in this encounter Care Teams Associate Merchandise Planner Relationship Specialty Start Date End Date Hiren Brand DO [address] [place] [phone] PCP - General Internal Medicine 06/09/24 documented as of this encounter
--- OUTSIDE RECORDS SUMMARY | 2024-12-24 08:56 | XMS_ITS | Clinical Summary ---
Author Organization [facility] Address [address] [place] [address] Care Team Providers Care Guide Escort Name Role Phone Unavailable Primary Care Provider Unavailabl e Social History Tobacco Use Types Packs/Day Years Used Date Smoking Tobacco: Never Assessed Comments Unknown Sex and Gender Information Value Date Recorded Sex Assigned at Not on file Legal Sex Female 7:48 PM CDT Gender Identity Not on file Sexual Orientation Not on file Plan of Treatment Health Maintenance Due Date Last Done Comments Cervical Cancer Screening Pa p Smear (Age 30 to 64) Every 3 Years 1980 Annual Physical 01/05/1983 Hepatitis C 01/05/1998 DTaP, Tdap and Td Vaccines ( 1 - Tdap) 01/05/1999 Hepatitis B Vaccines (1 of 3 - 19+ 3-dose series) 01/05/1999 Cervical Cancer Screening Pa p with HPV Testing (Age 30 to 64) Every 5 Years 01/05/2010 Cervical Cancer Screening with HPV 01/05/2010 Mammogram Screening 2020 COVID-19 Vaccine (2023-2 5 season) 2024 HPV Vaccines Aged Out No longer eligi ble based on patient's age to complete this topic Meningococcal B Vaccine Aged Out No l onger eligible based on patient's age to complete this topic Meningococcal Vaccine Aged Out No natasha dinesh eligible based on patient's age to complete this topic Pneumococcal Vaccine: Pediat rics (0 to 5 Years) and At-Risk Patients (6 to 49 Years) Aged Out No longer eligible b ased on patient's age to complete this topic RSV Immunizations Under 20 Months Aged Out No longer eligible based on patient's age to complete this topic
[2024-12-24 08:59] VITALS: BP 102/62; PULSE 96; RESP 18; TEMP 36.7; O2SAT 100
[2024-12-24 09:20] LABS: Basophils Percent Auto 0.3 % (0.2-1.2); Eosinophils Percent Auto 0.2 % (0-4.4); Hematocrit 38.9 % (37.0-47.0); Hemoglobin 12.8 g/dL (12.0-15.0); Immature Granulocyte Absolute 0.02 K/mm3 (0.00-0.031); Immature Granulocyte Percent A 0.3 % (0-0.5); Lymphocytes Absolute Auto 0.16 K/mm3 (0.9-3.2); Lymphocytes Percent Auto 2.5 % (18.3-44.2); Mean Corpuscular HGB Conc 32.9 g/dl (32-36); Mean Corpuscular Hemoglobin 28.8 pg (26-34); Mean Corpuscular Volume 87.4 fl (80-100); Mean Platelet Volume 8.9 fl (7.4-10.4); Monocytes Absolute Auto 0.2 K/mm3 (0.1-0.6); Monocytes Percent Auto 2.3 % (2.6-8.5); Neutrophils Absolute Auto 6.1 K/mm3 (1.3-6.7); Neutrophils Percent Auto 94.4 % (45.5-73.1); Platelet Count Result 171 k/mm3 (150-375); Red Blood Count 4.45 M/mm3 (4.2-5.4); White Blood Count 6.5 K/mm3 (4.5-10.0)
[2024-12-24 09:30] LABS: Alanine Aminotransferase 23 U/L (6-35); Albumin Level 4.8 g/dL (3.5-5.1); Alkaline Phosphatase 83 U/L (38-126); Anion Gap 11 mmol/L (4-12); Aspartate Amino Transferase 28 U/L (14-36); Bilirubin,Total 0.8 mg/dL (0.2-1.3); Blood Urea Nitrogen 12 mg/dL (7-17); Calcium 9.3 mg/dL (8.4-10.2); Carbon Dioxide 24 mmol/L (22-30); Chloride 101 mmol/L (98-107); Estimated CRCL calculation 66 ml/min; Estimated Glomerular Filt Rate > 60; Glucose 96 mg/dL (65-110); Potassium 3.6 mmol/L (3.4-5.0); Sodium 136 mmol/L (137-145)
[2024-12-24 10:24] VITALS: BP 95/62; PULSE 96; RESP 20; O2SAT 100
--- OUTSIDE RECORDS SUMMARY | 2024-12-24 10:24 | XMS_ITS | Clinical Summary ---
Author Organization [facility] Address [address] [place] [address] Care Team Providers Care Conference Concierge Name Role Phone Unavailable Primary Care Provider [...]
--- OUTSIDE RECORDS SUMMARY | 2024-12-24 10:24 | XMS_ITS | Encounter Summary ---
Author Organization [facility] Address [address] [facility] [place] [address] Care Team Providers Care Tool Planer Set Up Operator Name Role Phone Hiren Brand DO Primary Care Provider [phone] Reason for Visit * Reason Comments Refill Request Encounter Details Date Type Department Care Team (Late st Contact Info) Description 03/23/2024 Refill [facility] Op[facility] [address] [place] [phone] Deyanira Lewis MD [address] [place] [address] [place] [address] Refill Request Social History Tobacco Use Types Packs/Day Years Used Date Smoking Tobacco: Never Smokeless Tobacco: Never Comments Unknown Sex and Gender Information Value Date Recorded Sex Assigned at Not on file 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 Gender Identity Not on file Sexual Orientation Not on file documented as of this encounter Plan of Treatment Upcoming Encounters Date Type Department Care Team (Late st Contact Info) Description 03/14/2025 3:50 PM CDT Office Visit [facility] Dermatology [address] [place] [phone] Deyanira Lewis MD [address] [place] [address] [place] [phone] documented as of this encounter Visit Diagnoses Diagnosis Seborrheic dermatitis documented in this encounter Care Teams Tool Planer Set Up Operator Relationship Specialty Start Date End Date Hiren Brand DO [address] [place] [phone] PCP - General Internal Medicine 06/09/24 documented as of this encounter
--- OUTSIDE RECORDS SUMMARY | 2024-12-24 10:24 | XMS_ITS | Clinical Summary ---
Author Organization [facility] [employer] Address [address] [facility] [address] [place] [address] Care Team Providers Care Cylinder Valve Repairer Name Role Phone Hiren Brand DO Primary Care Provider [phone] Source Comments [facility] [employer],non-owned Affiliates and Associated Physician Practices is amultiple site organization consisting of ambulatory clinics and hospital sitesin [place], [place], [place] and [place]. This disclosure is being madepursuant to the Care Everywhere program and may not contain all informatio navailable regarding this patient. 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 WRAPPING ROOM Gender Identity Not on file Sexual Orientation [...] Office Visit [facility] Derm[facility] [address] [place] [address], [facility] [place] [phone] Deyanira Lewis MD [address] [place] [address] [address] [place] [address] Health Maintenance Due Date Last [...] to complete this topic [place] [address] Care Teams Cylinder Valve Repairer Relationship Specialty Start Date End Date Hiren Brand DO [address] [place] [phone] PCP - General Internal Medicine 06/09/24
--- OUTSIDE RECORDS SUMMARY | 2024-12-24 10:24 | XMS_ITS | Encounter Summary ---
Author Organization [facility] Address [address] [place] [address] Care Team Providers Care Advertising Statistical Clerk Name Role Phone Hiren Brand DO Primary Care Provider [phone] Reason for Visit * Reason Onset Date Comments Appointment 10/05/2022 Encounter Details Date Type Department Care Team (Late st Contact Info) Description 10/05/2022 Telephone [facility] [address] [place] [address] Deyanira Lewis MD [address] [place] [address] Appointment Social History Tobacco Use Types Packs/Day Years Used Date Smoking Tobacco: Never Smokeless Tobacco: Never Comments Unknown Sex and Gender Information Value Date Recorded Sex Assigned at Not on file Legal Sex Female 6:23 AM HEALTHCARE CONSULTANT Gender Identity Not on file Sexual Orientation Not on file documented as of this encounter Miscellaneous Notes * Telephone Encounter - Deyanira Lewis MD - 10/14/2022 6:11 PM CST PCCs Although this should not be an urgent procedure, Can go ahead and schedule for october 26 at in afternoon Thank you. THCARE CONSULTANT * Telephone Encounter - Wendy Linn - 10/05/2022 1:33 PM CST Pt needs to schedule a ED&C procedure with in a week or two with Dr Lewis. THCARE CONSULTANT documented in this encounter Plan of Treatment Upcoming Encounters Date Type Department Care Team (Late st Contact Info) Description 03/14/2025 3:50 PM CDT Office Visit [facility] - Dermatology [address] [place] [address], [place] [address] Deyanira Lewis MD [address] [place] [address] [address] [place] [address] documented as of this encounter Visit Diagnoses Not on filedocumented in this encounter Care Teams Advertising Statistical Clerk Relationship Specialty Start Date End Date Hiren Brand DO [address] [place] [phone] PCP - General Internal Medicine 06/09/24 documented as of this encounter
--- OUTSIDE RECORDS SUMMARY | 2024-12-24 10:24 | XMS_ITS | Clinical Summary ---
Author Organization [facility] Address [address] [place] [address] Phone Care Team Providers Care Redipper Name Role Phone Hiren Brand DO Primary Care Provider Dael Viera MD Unavailable [phone] Allergies Active Allergy Reactions Criticality Noted Date [...] to complete this topic Insurance Care Teams Redipper Relationship Specialty Start Date End Date Hiren Brand DO [facility] [place] [address] PCP - General Internal Medicine 12/10/17 Dale Viera MD [address] [place] [phone] Consulting Physician Neurology 05/01/22
--- OUTSIDE RECORDS SUMMARY | 2024-12-24 10:24 | XMS_ITS | CONTINUITY OF CARE DOCUMENT ---
Author Name see cui Address Unknown Organization [facility] Address [address] [facility] [address] [place] [address] Phone [phone] Care Team Providers Care Academic Affairs Specialist Name Role Phone see cui Unavailable Unavailable INSURANCE PROVIDERS Payer name Policy type / Coverage type [place] red constitution party ID [facility] Medicaid 1 [id number]
[2024-12-24] MEDS: ONDANSETRON INJ 4 MG/2 ML VIAL IV PUSH (10:56)
[2024-12-24] MEDS: SODIUM CHLORIDE 0.9% IV 1,000 ML 999 ML IV CONT ×2 (10:56→12:08)
[2024-12-24] MEDS: KETOROLAC 30 MG/ML VIAL (*BKC) IV PUSH (10:57)
[2024-12-24 11:10] LABS: Add Urine Microscopic? YES; Appearance Urine Clear (Clear); Bacteria Urine None Seen /hpf; Bilirubin Urine Negative (Negative); Blood Urine Negative (Negative); Color Urine Dark Yellow (Yellow); Glucose Urine UA Negative (Negative); Ketones Urine 1+ mg/dL (Negative); Leukocyte Esterase Ur 3+ LEU/UL (Negative); Nitrate Urine Negative (Negative); Non Pathogenic Casts 0-2; Protein Urine Trace mg/dL (Negative); RBC Urine 0-2 /hpf (0-2); Specific Grav Ur 1.015 (1.001-1.035); Squamous Epithelial Cell Urine Occasional /hpf (Few); WBC Urine 51-100 /hpf (0-3); pH Urine 8.5 (5.0-9.0)
[2024-12-24 12:13] VITALS: BP 91/61; PULSE 94; RESP 14; TEMP 37.6; O2SAT 98
[2024-12-24 13:00] VITALS: BP 98/63; PULSE 89; RESP 20; O2SAT 100
[2024-12-24 13:01] VITALS: BP 100/61; PULSE 88; RESP 20; O2SAT 99
--- NOTE | 2024-12-24 13:20 | ED_ITS ---
HPI - General Adult General Chief complaint: Headache Stated complaint: severe head, neck and back pain Time Seen by Provider: 12/24/24 10:05 History of Present Illness HPI narrative: The patient is a 44-year-old female who presents ER with headache as well as back pain neck achiness. Patient reports over the last day she has had some nausea vomiting as well as some burning urination. She was diagnosed with the UTI. She was prescribed Macrobid. She woke up today with his body aches. Pain in the back is on the left side. No fevers but she has had chills. Denies urinary frequency today. No chest pain or chest pressure. Has history of headaches, has Chiari malformation and occasional weeks from spinal cord that she has seen and evaluated for at [place]. Related Data Home Medications ?Medication ?Instructions ?Recorded ?Confirmed ?Last Taken ?Type atogepant 60 mg tablet (Qulipta) 60 mg PO DAILY 12/20/23 02/17/24 Unknown History ubrogepant 100 mg tablet (Ubrelvy) 100 mg PO ONCE 12/20/23 02/17/24 Unknown History Allergies Allergy/AdvReac Type Severity Reaction Status Date / Time acetaminophen (From Vicodin) Allergy Mild Vomiting Verified 12/24/24 09:07 hydrocodone (From Vicodin) Allergy Mild Vomiting Verified 12/24/24 09:07 Review of Systems 2 Review of Systems: All systems reviewed & are unremarkable except as noted in HPI and below Constitutional: Constitutional: Reports no additional constitutional complaints Cardiovascular: Cardiovascular: Reports no additional cardiovascular complaints Respiratory: Respiratory: Reports no additional respiratory complaints Gastrointestinal: Gastrointestinal: Reports no additional gastrointestinal complaints Genitourinary: Genitourinary: Reports no additional female genitourinary complaints [facility] Past Medical History Medical History Airway obstruction 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 Migraines Vertigo Surgical History Surgical History No significant past surgical history Family History Family History Mother Patient's mother is in good health Father Patient's father is in good health Social History Social History Social History: Caffeine-coffee Smoking status: Never smoker Alcohol intake: current Alcohol use details: socially Substance use: never Substance use type: does not use Do You Feel Safe in your Home?: Yes Lack of Transportation: No Lack of Food: Never True Current Housing: I Have Housing Concerned About Future Housing: No Difficulty Paying Gas/Electric Bills: No Difficulty Paying for Meds: No Currently Unemployed: No Education: Associate Degree Difficulty w/ Childcare or Family Care: No Gender identity (if verbalized by the patient): Female Sexual Orientation (if Verbalized by the Patient): Straight or Heterosexual Exam 2 Narrative: GENERAL: Well-appearing, well-nourished, and in no acute distress. HEAD: Normocephalic, atraumatic. ENT: Mucous membranes moist. NECK: Supple. Full range of motion. CHEST: Clear to auscultation. No respiratory distress. HEART: Regular rate and rhythm. Normal peripheral pulses. ABDOMEN: Soft, nontender, nondistended. Back: No reproducible tenderness the T/L-spine midline or paraspinally. No CVA tenderness EXTREMITIES: Normal range of motion. No edema. SKIN: Warm, dry, no rash. NEURO: Alert and oriented x3. PSYCH: Normal mood and affect. Course Course Emergency Course: Patient resting comfortably. Informed of results. Received 2 L IV fluid. Discontinue Macrobid and start on Bactrim Vital Signs Vital signs: Vital Signs Temperature 98.1 F 12/24/24 08:59 Pulse Rate 96 12/24/24 08:59 Respiratory Rate 18 12/24/24 08:59 Blood Pressure 102/62 12/24/24 08:59 Pulse Oximetry 100 12/24/24 08:59 Temperature 99.6 F 12/24/24 12:13 Pulse Rate 88 12/24/24 13:01 Respiratory Rate 20 12/24/24 13:01 Blood Pressure 100/61 12/24/24 13:01 Pulse Oximetry 99 12/24/24 13:01 Medical Decision Making Vital Signs Vital Signs: Vital Signs Temperature 98.1 F 12/24/24 08:59 Pulse Rate 96 12/24/24 08:59 Respiratory Rate 18 12/24/24 08:59 Blood Pressure 102/62 12/24/24 08:59 Pulse Oximetry 100 12/24/24 08:59 Temperature 99.6 F 12/24/24 12:13 Pulse Rate 88 12/24/24 13:01 Respiratory Rate 20 12/24/24 13:01 Blood Pressure 100/61 12/24/24 13:01 Pulse Oximetry 99 12/24/24 13:01 Lab Data 12/24/24 09:16 12/24/24 09:16 Labs: Lab Results 12/24/24 12/24/24 Range/Units 09:16 10:59 WBC 6.5 (4.5-10.0) K/mm3 RBC 4.45 (4.2-5.4) M/mm3 Hgb 12.8 (12.0-15.0) g/dL Hct 38.9 (37.0-47.0) % MCV 87.4 (80-100) fl MCH 28.8 (26-34) pg MCHC 32.9 (32-36) g/dl RDW 13.0 (11.5-14.5) % Plt Count 171 (150-375) k/mm3 MPV 8.9 (7.4-10.4) fl Immature Gran % (Auto) 0.3 (0-0.5) % Neut % (Auto) 94.4 H (45.5-73.1) % Lymph % (Auto) 2.5 L (18.3-44.2) % Mitchell % (Auto) 2.3 L (2.6-8.5) % Eos % (Auto) 0.2 (0-4.4) % Baso % (Auto) 0.3 (0.2-1.2) % Lymph # (Auto) 0.16 L (0.9-3.2) K/mm3 Mitchell # (Auto) 0.2 (0.1-0.6) K/mm3 Eos # (Auto) 0.0 (0-0.3) K/mm3 Baso # (Auto) 0.0 (0.0-0.1) K/mm3 Abs Immat Gran (auto) 0.02 (0.00-0.031) K/mm3 Absolute Neuts (auto) 6.1 (1.3-6.7) K/mm3 Absolute Nucleated RBC 0.000 (0.0-0.012) K/mm3 Nucleated RBC % 0.0 (0.0-0.2) % Sodium 136 L (137-145) mmol/L Potassium 3.6 (3.4-5.0) mmol/L Chloride 101 (98-107) mmol/L Carbon Dioxide 24 (22-30) mmol/L Anion Gap 11 (4-12) mmol/L BUN 12 (7-17) mg/dL Creatinine 0.69 L (0.7-1.0) mg/dL Estim Creat Clear Calc 66 ml/min Estimated GFR > 60 (59 - ) Glucose 96 (65-110) mg/dL Calcium 9.3 (8.4-10.2) mg/dL Total Bilirubin 0.8 (0.2-1.3) mg/dL AST 28 (14-36) U/L ALT 23 (6-35) U/L Alkaline Phosphatase 83 (38-126) U/L Total Protein 8.0 (6.3-8.2) g/dL Albumin 4.8 (3.5-5.1) g/dL Urine Color Dark yellow (Yellow) Urine Appearance Clear (Clear) Urine pH 8.5 (5.0-9.0) Ur Specific Hayward 1.015 (1.001-1.035) Urine Protein Trace (Negative) mg/dL Urine Glucose (UA) Negative (Negative) mg/dL Urine Ketones 1+ H (Negative) mg/dL Ur Blood (Man) Negative (Negative) Urine Nitrate Negative (Negative) Urine Bilirubin Negative (Negative) Urine Urobilinogen 1.0 (<2.0) mg/dL Leukocyte Esterase Rfl 3+ H (Negative) JESS/UL Urine RBC 0-2 (0-2) /hpf Urine WBC 51-100 H (0-3) /hpf Ur Squamous Epith Cells Occasional (Few) /hpf Urine Bacteria None seen /hpf Urine Casts 0-2 Discharge Plan Discharge Clinical Impression: UTI (urinary tract infection), Headache Patient Disposition: Home Condition: Stable Instructions: Urinary Tract Infection in Women (ED), Tension Headache (ED) Additional Instructions: You should return to the emergency department if you develop severe nausea and vomiting and are unable to keep liquids down, if you develop severe back/flank or stomach pain, or if your symptoms are not clearly improving at home. Discontinue Macrobid/nitrofurantoin and start Bactrim DS. Patient Language: Mongolian Prescriptions: New sulfamethoxazole-trimethoprim [Bactrim DS] 800-160 mg tablet 1 tablet PO Q12H Qty: 14 0RF ondansetron 4 mg tablet,disintegrating 4 mg PO Q6H PRN (Reason: nausea and vomiting) Qty: 10 0RF No Action ondansetron HCl 8 mg tablet 8 mg PO Q8H PRN (Reason: Nausea) Qty: 30 1RF Ubrelvy 100 mg tablet 100 mg PO ONCE Rx Instructions: samples given Qulipta 60 mg tablet 60 mg PO DAILY Rx Instructions: Samples given ciprofloxacin HCl [Cipro] 500 mg tablet 500 mg PO Q12H Qty: 14 0RF diazepam [Valium] 5 mg tablet 5 mg PO DAILY PRN (Reason: chiari malformation) Qty: 30 5RF Rx Instructions: Take 1/2-1 tablet daily prn Follow-up/Referrals: Marlena Lawson, PHOTOGRAPHY INTERN [Primary Care Provider] - 1 Week
[2024-12-25 11:57] LABS: BEDSIDEPREGUCG Negative (Negative)
== END 2024-12-24 13:42 | disposition home or self-care (01) ==
PROVIDERS: Emergency Medicine; Emergency Provider Emergency Medicine; PCP Nurse Practitioner
DX: N39.0 Urinary tract infection, site not specified (principal); R51.9 Headache, unspecified; G93.5 Compression of brain
CPT/HCPCS: 36415; 80053; 81001; 81025; 85025; 87086; 96361; 96374; 96375; 99284; J1885; J2405; J7030

== ENCOUNTER 2025-06-14 09:12 | Outpatient (CLI) | payer OTHER, SELFPAY ==
--- OUTSIDE RECORDS SUMMARY | 2025-06-14 09:41 | XMS_ITS | Encounter Summary ---
Author Organization [facility] Health Address [address] [facility] [place] [address] Care Team Providers Care Balance Weigher Name Role Phone Hiren Brand DO Primary Care Provider [phone] Reason for Visit * Reason Onset Date Comments Appointment 10/05/2022 Encounter Details Date Type Department Care Team (Late st Contact Info) Description 10/05/2022 Telephone [facility] [address] [place] [address] Deyanira Lewis MD [address] [place] [address] Appointment Social History Tobacco Use Types Packs/Day Years Used Date Smoking Tobacco: Never Smokeless Tobacco: Never Comments Unknown Sex and Gender Information Value Date Recorded Sex Assigned at Not on file Legal Sex Female 6:23 AM TUBE MAN Gender Identity Not on file Sexual Orientation Not on file documented as of this encounter Miscellaneous Notes * Telephone Encounter - Deyanira Lewis MD - 10/14/2022 6:11 PM CST PCCs Although this should not be an urgent procedure, Can go ahead and schedule for october 26 at in afternoon Thank you. MAN * Telephone Encounter - Wendy Linn - 10/05/2022 1:33 PM CST Pt needs to schedule a ED&C procedure with in a week or two with Dr Lewis. MAN documented in this encounter Plan of Treatment Upcoming Encounters Date Type Department Care Team (Late st Contact Info) Description 06/20/2025 1:50 PM CDT Office Visit [facility] - Dermatology [address] [place] [address], [place] [address] Deyanira Lewis MD [address] [place] [address] [address] [place] [address] documented as of this encounter Visit Diagnoses Not on filedocumented in this encounter Care Teams Balance Weigher Relationship Specialty Start Date End Date Hiren Brand DO [address] [place] [address] PCP - General Internal Medicine 06/09/24 documented as of this encounter
--- OUTSIDE RECORDS SUMMARY | 2025-06-14 09:41 | XMS_ITS | Clinical Summary ---
Author Organization [facility] Address [address] [place] [address] Care Team Providers Care Conference Services Director Name Role Phone Hiren Brand DO Primary Care Provider [phone] Source Comments [facility],non-owned Affiliates and Associated Physician Practices is amultiple site organization consisting of ambulatory clinics and hospital sitesin [place], [place], [place] and [place]. This disclosure is being madepursuant to the Care Everywhere program and may not contain all information available regarding this patient. Last updated 18.[facility] Allergies Active Allergy Reactions Criticality Noted Date [...] 01/24/2019 Carrier of group B Streptococcus 01/24/2019 Encounters Date Type Department Care Team Description 03/14/2025 Travel from Last 3 Months Immunizations Immunization Administration Dates Next Due fruux primary monoval ent 12+ yr 0.3mL Purple [...] on file Legal Sex Female 6:23 AM FORENSICS TEAM DIRECTOR Gender Identity Not on file Sexual Orientation [...] 11:05 AM CDT Height 167.6 cm (5' 6) 06/09/2024 11:05 AM CDT Body Mass Index 17.79 06/09/2024 11:05 AM CDT Plan of Treatment Upcoming Encounters Date Type Department Care Team (Late st Contact Info) Description 06/20/2025 1:50 PM CDT Office Visit [facility] - Dermatology [address] [place] [address], [place] [address] Deyanira Lewis MD [address] [place] [address] [address] [place] [address] Health Maintenance Due Date Last Done Comments COLOGUARD (AGES 45-75) - COLON CA SCREENING 1980 COLON MONITORING 1980 COLONOSCOPY - COLON CA SCREENING 1980 CT COLONOGRAPHY - COLON CA SCREENING 1980 Colorectal Cancer Screening 1980 FIT - COLON CA SCREENING 1980 FLEX SIG - COLON CA SCREENING 1980 LIPID TESTING 1980 MAMMOGRAM 1980 HIV SCREENING 01/05/1995 HEPATITIS C SCREENING 01/01/1998 PAP SMEAR 01/05/2001 HEPATITIS B VACCINE (2 of 3 - 19+ 3-dose series) 01/31/2018 01/03/2018 DEPRESSION SCREENING 08/23/2024 COVID-19 VACCINE ( - season) 2025 07/05/2021, 05/17/2021 INFLUENZA VACCINE (#1) 2025 09/08/2017, 2014 DTAP/TDAP/TD VACCINES (8 - Td or Tdap) [...] patient's age to complete this topic Insurance [facility] Care Teams Conference Services Director Relationship Specialty Start Date End Date Hiren Brand DO [address] [place] [address] PCP - General Internal Medicine 06/09/24
--- OUTSIDE RECORDS SUMMARY | 2025-06-14 09:41 | XMS_ITS | Clinical Summary ---
Author Organization [facility] Address [address] [place] [id number] Care Team Providers Care Home Care Associate Name Role Phone Unavailable Primary Care Provider [...] 30 to 64) Every 3 Years 1980 Colorectal Cancer Screening Colonoscopy (10 Years) 1980 Annual Physical 01/05/1983 Hepatitis C 01/05/1998 DTaP, Tdap and Td Vaccines ( 1 - Tdap) 01/05/1999 Hepatitis B Vaccines (1 of 3 - 19+ 3-dose series) 01/05/1999 HPV Vaccines (1 - 3-dose SCD M series) 01/05/2007 Cervical Cancer Screening Pa p with HPV Testing (Age 30 to 64) Every 5 Years 01/05/2010 Cervical Cancer Screening with HPV 01/05/2010 Mammogram Screening 2020 COVID-19 Vaccine (2023-2 5 season) 2025 Influenza Adult (#1) 2025 Hepatitis A Vaccines Aged Out No long er eligible based [...]
--- OUTSIDE RECORDS SUMMARY | 2025-06-14 09:41 | XMS_ITS | Encounter Summary ---
Author Organization [facility] Address [address] [facility] [place] [address] Care Team Providers Care Mechanist Name Role Phone Hiren Brand DO Primary Care Provider [phone] Reason for Visit * Reason Comments Refill Request Encounter Details Date Type Department Care Team (Late st Contact Info) Description 03/23/2024 Refill [facility] - Ophthalmology [address] [place] [phone] Deyanira Lewis MD [address] [place] [address] [place] [address] Refill Request Social History Tobacco Use Types Packs/Day Years Used Date Smoking Tobacco: Never Smokeless Tobacco: Never Comments Unknown Sex and Gender Information Value Date Recorded Sex Assigned at Not on file 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 Gender Identity Not on file Sexual Orientation Not on file documented as of this encounter Plan of Treatment Upcoming Encounters Date Type Department Care Team (Late st Contact Info) Description 06/20/2025 1:50 PM CDT Office Visit [facility] - Dermatology [address] [place] [phone] Deyanira Lewis MD [address] [place] [address] [place] [phone] documented as of this encounter Visit Diagnoses Diagnosis Seborrheic dermatitis documented in this encounter Care Teams Mechanist Relationship Specialty Start Date End Date Hiren Brand DO [address] [place] [address] PCP - General Internal Medicine 06/09/24 documented as of this encounter
--- OUTSIDE RECORDS SUMMARY | 2025-06-14 09:41 | XMS_ITS | Clinical Summary ---
Author Organization [facility] Address [address] [place] [address] Phone Care Team Providers Care Home Health Caregiver Name Role Phone Hiren Brand DO Primary Care Provider Dale Viera MD Unavailable [phone] Allergies Active Allergy Reactions Criticality Noted Date [...] P M CDT Height 167.6 cm (5' 6) 02/15/2024 2:11 PM CDT Body Mass Index 16.88 02/15/2024 2:11 PM CDT Plan of Treatment Health Maintenance Due Date Last Done Comments Hepatitis C Virus (HCV) Screening 1980 Mammogram 1980 Pap Smear 01/05/2001 Cervical Cancer Screening (CCS) 01/05/2010 HPV/Cotest 01/05/2010 Hepatitis B Immunization (2 of 3 - 19+ 3-dose series) 01/31/2018 01/03/2018 Discussion re Starting/Frequency of Mammograms 2020 Cologuard 01/05/2025 Colonoscopy 01/05/2025 Colorectal Cancer Screening 01/05/2025 Immunochemical Fecal Occult Blood 01/05/2025 Influenza Immunization (#1) 2025 09/08/2017, 1 SARS-COV-2 Immunization ( season) 2025 07/05/2021, 05/17/2021 Respiratory Syncytial Virus (RSV) Immunization (Adult) (1 - 1-dose 75+ series) 01/05/2055 DTaP/Tdap/Td Immunization Discontinued 2017, 05/17/1996, 03/14/1985, Additional history exists TdaP Immunization Completed 01/03/2018 Human Papillomavirus (HPV) Immunization Completed 04/26/2020, 12/15/2019, 10/05/2019 Meningococcal Immunization (ACWY) Aged Out No longer eligible based on patient's age to complete this topic Pneumococcal Immunization Combined Aged Out No longer eligible based on patient's age to complete this topic Rotavirus Immunization Aged Out No lo nger eligible based on patient's age to complete this topic Insurance [facility] Care Teams Home Health Caregiver Relationship Specialty Start Date End Date Hiren Brand DO [address] [place] [address] [place], [place] [phone] PCP - General Internal Medicine 12/10/17 Dale Viera MD [address] [place] [address] Consulting Physician Neurology 05/01/22
== END 2025-06-14 09:13 | disposition home or self-care (01) ==
LOC: ANHLAB 09:13
PROVIDERS: PCP Internal Medicine; Visit Provider Nurse Practitioner
DX: A04.8 Other specified bacterial intestinal infections (principal)
CPT/HCPCS: 87338